=== PATIENT | female | born 1995 | race Caucasian/White ===

== ENCOUNTER 2018-07-27 19:40 | Inpatient (IN) ==
--- NOTE | 2018-07-27 20:38 | Emergency Department Note ---
Entered by Katelyn Veronica acting as a scribe for Stephen Gallagher DO History of Present Illness General Chief complaint: Mental Health Evaluation Stated complaint: depression,anxiety,suicide Source: patient and friends History of Present Illness Onset (ago): week(s) 1 Location: head (Suicidal ideation) Severity: similar to prior episodes Pain Consistency: + other (persistent) Maximum Pain Intensity: 7 Quality: + other (Suicidal ideation) Exacerbated By: + medication Associated symptoms: + other (Hallucinations, seizures) Treatments prior to arrival: other (Fenobarb, Vimpat) The patient is a 22 year old female who presents to the Emergency Room with complaints of persistent suicidal ideation starting 1 week ago. The patient reports that she came to the ED today due to her worsening suicidal ideation. She states that she was planning to jump in front of a moving vehicle. She adds that she does have access to knives and razors at home. The patients friend reports that the patient began to hallucinate 3 to 4 months ago and was verbally abusive because of the hallucinations. She explains that the patient is currently trying different medications to control her hallucinations and is currently taking Vimpat in addition to Fenobarb. The patients friend states that the patient has been having 2 to 3 seizures per day for the past month and that this is abnormal as her last seizure apart from the past month was in August. She adds that the patient was hospitalized due to her seizure in August. She reports that the patients last seizure was at [employer] and that she is epileptic. Home Medications Home Medications Medication Instructions Recorded Confirmed Type phenobarbital 64.8 mg PO BID 05/05/18 07/28/18 History cariprazine [Vraylar] 1.5 mg PO HS 07/28/18 07/28/18 History clindamycin HCl 300 mg PO Q8 07/28/18 07/28/18 History gabapentin 100 mg PO BID 07/28/18 07/28/18 History olanzapine 2.5 mg PO HS 07/28/18 07/28/18 History quetiapine 25 mg PO BID 07/28/18 07/28/18 History quetiapine 100 mg PO HS 07/28/18 07/28/18 History Allergies Allergy/AdvReac Type Severity Reaction Status Date / Time clonazepam Allergy Hallucinati Unverified 07/28/18 00:14 ng amitriptyline AdvReac Hives Unverified 07/28/18 00:14 carbamazepine [From Tegretol] AdvReac Hives Unverified 07/28/18 00:14 cephalexin [From Keflex] AdvReac Hives Unverified 07/28/18 00:14 clorazepate dipotassium AdvReac Hives Unverified 07/28/18 00:14 divalproex sodium AdvReac Hives Unverified 07/28/18 00:14 [From Depakote] lamotrigine [From Lamictal] AdvReac Hives Unverified 07/28/18 00:14 levetiracetam [From Keppra] AdvReac Hives Unverified 07/28/18 00:14 phenytoin [From Dilantin] AdvReac Hives Unverified 07/28/18 00:14 sertraline [From Zoloft] AdvReac Hives Unverified 07/28/18 00:14 topiramate [From Topamax] AdvReac Hives Unverified 07/28/18 00:14 trazodone AdvReac Hives Unverified 07/28/18 00:14 Past Med/Surg History Medical History Epilepsy Seizure disorder Lyme disease Family History Other No pertinent family history Social History Feels Safe at Home: Yes Smoking Status: Never smoker Preferred Language: Welsh Review of Systems See HPI for pertinent positives & negatives. and A total of 10 systems reviewed and were otherwise negative Physical Exam Vital Signs Vital Signs - 24 hr 07/27/18 19:44 07/27/18 21:42 07/27/18 23:26 Temperature 36.9 C Temperature Source Oral Sepsis Recent Fever Within 48 Hours No Sepsis Action Taken by Nursing No Action Required Pulse Rate 91 H Pulse Rate [Left Finger] 81 67 Pulse Rhythm [Left Finger] Regular Regular Pulse Strength [Left Finger] Normal Normal Respiratory Rate 18 16 16 Respiratory Effort / Characteristics Non-Labored Spontaneous Non-Labored Spontaneous Non-Labored Spontaneous Respiratory Depth Normal Normal Normal Respiratory Pattern Regular Regular Blood Pressure 141/93 H Blood Pressure [Right Arm] 111/69 111/73 Blood Pressure Mean 109 Blood Pressure Mean [Right Arm] 83 85 Blood Pressure Position [Right Arm] Sitting Sitting Pulse Oximetry 99 97 96 Oxygen Delivery Method Room Air Room Air Room Air GENERAL: Patient is awake alert in no acute distress patient is resting comfortably and showing no signs of anxiety EYES: The conjunctivae are clear. The pupils are round and reactive. EARS, NOSE, MOUTH AND THROAT: The nose is without any evidence of any deformity. Mucous membranes are moist tongue is midline NECK: The neck is nontender and supple. RESPIRATORY: Normal respiratory effort is noted there is no evidence of wheezing rhonchi or rales CARDIOVASCULAR: Regular rate and rhythm noted there no murmurs rubs or gallops normal S1 normal S2 GASTROINTESTINAL: The abdomen is soft. Bowel sounds are present in all quadrants. Abdomen is nontender MUSCULOSKELETAL/EXTREMITIES: There is no evidence of gross deformity full range of motion is noted in the hips and shoulders SKIN: There is no obvious evidence of any rash. There are no petechiae, pallor or cyanosis noted. NEUROLOGIC: Patient is awake alert and oriented x3 strength is symmetric patellar reflexes are 2+ bilaterally PSYCH: Patient is awake alert. Affect is flat. Patient is currently admitting to suicidal ideation with plan to step out in front of traffic to hurt herself. Course 2021: Past medical records reviewed. The patient was evaluated in room A6, and a complete history and physical examination were performed. 0001: I spoke with the psychiatric patient case manager at this time. 0027: I reevaluated the patient at this time. 0030: I reviewed the patient's case with Dr. Yuly Thorpe [facility] Emergency Physician. She will evaluate the patient for further management regarding her pending placement. Medical Decision Making Differential Diagnosis Differential includes toxic ingestions, self-mutilation, suicidal ideation, suicide attempt, depression. Medical Records Attestation: I reviewed the patient's medical records. Home Medications Current Medication List: was personally reviewed by me Laboratory Data Attestation: I reviewed the patient's lab results. Result diagrams: 07/27/18 20:59 07/27/18 20:59 Lab Results 07/27/18 07/27/18 07/27/18 Range/Units 20:00 20:00 20:50 WBC (4.8-10.8) K/uL RBC (4.2-5.4) M/uL Hgb (12.0-16.0) g/dL Hct (37-47) % MCV (80-100) fL MCH (25-34) pg MCHC (32-36) g/dL RDW Std Deviation (36.4-46.3) fL RDW Coeff of Alfie (11.5-14.5) % Plt Count (130-400) K/uL MPV (7.4-10.4) fL Immature Gran % (Auto) % Neut % (Auto) % Lymph % (Auto) % [place] % (Auto) % Eos % (Auto) % Baso % (Auto) % Immature Gran # (Auto) (0.00-0.02) K/uL Neut # (Auto) (1.4-6.5) K/uL Lymph # (Auto) (1.2-3.4) K/uL [place] # (Auto) (0.11-0.59) K/uL Eos # (Auto) (0-0.5) K/uL Baso # (Auto) (0-0.2) K/uL Sodium (136-145) mmol/L Potassium (3.5-5.1) mmol/L Chloride (98-107) mmol/L Carbon Dioxide (21-32) mmol/L Anion Gap (3-11) BUN (7-18) mg/dl Creatinine (0.6-1.2) mg/dl Est Cr Clr Drug Dosing ml/min Est GFR ( Amer) Est GFR (Non-Af Amer) BUN/Creatinine Ratio (10-20) Glucose (70-99) mg/dl Calcium (8.5-10.1) mg/dl Total Bilirubin (0.1-1) mg/dl AST (15-37) U/L ALT (12-78) U/L Alkaline Phosphatase (45-117) U/L Total Protein (6.4-8.2) gm/dl Albumin (3.4-5.0) gm/dl Globulin (2.5-4.0) gm/dl Albumin/Globulin Ratio (0.9-2) TSH (0.300-4.500) uIu/ml HCG, Qual Negative (Negative) Urine Color Yellow Urine Appearance Clear (Clear) Urine pH 6.0 (4.5-7.5) Ur Specific [place] 1.008 (1.000-1.030) Urine Protein Negative (Negative) Urine Glucose (UA) Negative (Negative) Urine Ketones Negative (Negative) Urine Blood Negative (Negative) Urine Nitrite Negative (Negative) Urine Bilirubin Negative (Negative) Urine Urobilinogen Negative (Negative) Ur Leukocyte Esterase Negative (Negative) Salicylates (2.8-20) mg/dl Urine Opiates Screen Neg (Neg) Ur Methadone, Qual Neg (Neg) Acetaminophen (10-30) ug/ml Urine Barbiturates Pos H (Neg) Ur Phencyclidine (PCP) Neg (Neg) U Amphetamin/Meth Scrn Neg (Neg) MDMA (Ecstasy) Screen Neg (Neg) Phenobarbital (15-40) mcg/mL U Benzodiazepines Scrn Neg (Neg) Ur Cocaine Metabolite Neg (Neg) U Marijuana (THC) Screen Neg (Neg) Ethyl Alcohol mg/dL (0-3) mg/dl 07/27/18 07/27/18 07/27/18 Range/Units 20:59 20:59 20:59 WBC 4.81 (4.8-10.8) K/uL RBC 4.51 (4.2-5.4) M/uL Hgb 12.7 (12.0-16.0) g/dL Hct 37.8 (37-47) % MCV 83.8 (80-100) fL MCH 28.2 (25-34) pg MCHC 33.6 (32-36) g/dL RDW Std Deviation 38.2 (36.4-46.3) fL RDW Coeff of Alfie 12.6 (11.5-14.5) % Plt Count 286 (130-400) K/uL MPV 9.2 (7.4-10.4) fL Immature Gran % (Auto) 0.2 % Neut % (Auto) 48.5 % Lymph % (Auto) 40.3 % [place] % (Auto) 9.4 % Eos % (Auto) 1.0 % Baso % (Auto) 0.6 % Immature Gran # (Auto) 0.01 (0.00-0.02) K/uL Neut # (Auto) 2.33 (1.4-6.5) K/uL Lymph # (Auto) 1.94 (1.2-3.4) K/uL [place] # (Auto) 0.45 (0.11-0.59) K/uL Eos # (Auto) 0.05 (0-0.5) K/uL Baso # (Auto) 0.03 (0-0.2) K/uL Sodium 136 (136-145) mmol/L Potassium 4.0 (3.5-5.1) mmol/L Chloride 104 (98-107) mmol/L Carbon Dioxide 26 (21-32) mmol/L Anion Gap 6.0 (3-11) BUN 12 (7-18) mg/dl Creatinine 0.86 (0.6-1.2) mg/dl Est Cr Clr Drug Dosing 78.7 ml/min Est GFR ( Amer) 112.7 Est GFR (Non-Af Amer) 97.3 BUN/Creatinine Ratio 14.3 (10-20) Glucose 94 (70-99) mg/dl Calcium 8.9 (8.5-10.1) mg/dl Total Bilirubin 0.1 (0.1-1) mg/dl AST 13 L (15-37) U/L ALT 23 (12-78) U/L Alkaline Phosphatase 73 (45-117) U/L Total Protein 8.3 H (6.4-8.2) gm/dl Albumin 4.3 (3.4-5.0) gm/dl Globulin 4.0 (2.5-4.0) gm/dl Albumin/Globulin Ratio 1.1 (0.9-2) TSH 3.310 (0.300-4.500) uIu/ml HCG, Qual (Negative) Urine Color Urine Appearance (Clear) Urine pH (4.5-7.5) Ur Specific [place] (1.000-1.030) Urine Protein (Negative) Urine Glucose (UA) (Negative) Urine Ketones (Negative) Urine Blood (Negative) Urine Nitrite (Negative) Urine Bilirubin (Negative) Urine Urobilinogen (Negative) Ur Leukocyte Esterase (Negative) Salicylates < 1.7 L (2.8-20) mg/dl Urine Opiates Screen (Neg) Ur Methadone, Qual (Neg) Acetaminophen < 2 L (10-30) ug/ml Urine Barbiturates (Neg) Ur Phencyclidine (PCP) (Neg) U Amphetamin/Meth Scrn (Neg) MDMA (Ecstasy) Screen (Neg) Phenobarbital 37.0 (15-40) mcg/mL U Benzodiazepines Scrn (Neg) Ur Cocaine Metabolite (Neg) U Marijuana (THC) Screen (Neg) Ethyl Alcohol mg/dL (0-3) mg/dl 07/27/18 Range/Units 20:59 WBC (4.8-10.8) K/uL RBC (4.2-5.4) M/uL Hgb (12.0-16.0) g/dL Hct (37-47) % MCV (80-100) fL MCH (25-34) pg MCHC (32-36) g/dL RDW Std Deviation (36.4-46.3) fL RDW Coeff of Alfie (11.5-14.5) % Plt Count (130-400) K/uL MPV (7.4-10.4) fL Immature Gran % (Auto) % Neut % (Auto) % Lymph % (Auto) % [place] % (Auto) % Eos % (Auto) % Baso % (Auto) % Immature Gran # (Auto) (0.00-0.02) K/uL Neut # (Auto) (1.4-6.5) K/uL Lymph # (Auto) (1.2-3.4) K/uL [place] # (Auto) (0.11-0.59) K/uL Eos # (Auto) (0-0.5) K/uL Baso # (Auto) (0-0.2) K/uL Sodium (136-145) mmol/L Potassium (3.5-5.1) mmol/L Chloride (98-107) mmol/L Carbon Dioxide (21-32) mmol/L Anion Gap (3-11) BUN (7-18) mg/dl Creatinine (0.6-1.2) mg/dl Est Cr Clr Drug Dosing ml/min Est GFR ( Amer) Est GFR (Non-Af Amer) BUN/Creatinine Ratio (10-20) Glucose (70-99) mg/dl Calcium (8.5-10.1) mg/dl Total Bilirubin (0.1-1) mg/dl AST (15-37) U/L ALT (12-78) U/L Alkaline Phosphatase (45-117) U/L Total Protein (6.4-8.2) gm/dl Albumin (3.4-5.0) gm/dl Globulin (2.5-4.0) gm/dl Albumin/Globulin Ratio (0.9-2) TSH (0.300-4.500) uIu/ml HCG, Qual (Negative) Urine Color Urine Appearance (Clear) Urine pH (4.5-7.5) Ur Specific [place] (1.000-1.030) Urine Protein (Negative) Urine Glucose (UA) (Negative) Urine Ketones (Negative) Urine Blood (Negative) Urine Nitrite (Negative) Urine Bilirubin (Negative) Urine Urobilinogen (Negative) Ur Leukocyte Esterase (Negative) Salicylates (2.8-20) mg/dl Urine Opiates Screen (Neg) Ur Methadone, Qual (Neg) Acetaminophen (10-30) ug/ml Urine Barbiturates (Neg) Ur Phencyclidine (PCP) (Neg) U Amphetamin/Meth Scrn (Neg) MDMA (Ecstasy) Screen (Neg) Phenobarbital (15-40) mcg/mL U Benzodiazepines Scrn (Neg) Ur Cocaine Metabolite (Neg) U Marijuana (THC) Screen (Neg) Ethyl Alcohol mg/dL < 3.0 (0-3) mg/dl Blood Pressure Blood Pressure Findings: Normal blood pressure Blood Pressure Disposition: did not require urgent referral MDM Narrative The patient is a 22-year-old female who presented to the emergency department for mental health evaluation. The patient has a history of mental health depression as well as some anxiety. She also has an underlying seizure disorder. The patient was medically cleared in the emergency department. The patient was evaluated by the mental health patient case manager. At this time further bed search is underway. Currently the patient is being evaluated by the delegate from [facility]. I do feel she would be a good candidate for inpatient treatment. The patient was able to take her evening medications. The patient was signed out to the nighttime physician. Please see her note for continuation of care and final disposition. Impression & Plan Suicidal ideation, Mood disorder, Seizure Discharge Plan Visit Data Chief Complaint: Mental Health Evaluation Stated Complaint: depression,anxiety,suicide ED Provider: Stephen Gallagher Discharge Problem: Suicidal ideation, Mood disorder, Seizure Patient Disposition: Still a Patient Forms Stand Alone Forms: My [facility] [employer] Prescriptions Prescriptions: No Action phenobarbital 32.4 mg tablet 64.8 mg PO BID RF: 0 quetiapine 25 mg tablet 25 mg PO BID RF: 0 quetiapine 100 mg tablet 100 mg PO HS RF: 0 gabapentin 100 mg capsule 100 mg PO BID RF: 0 clindamycin HCl 300 mg capsule 300 mg PO Q8 RF: 0 olanzapine 2.5 mg Tablet 2.5 mg PO HS RF: 0 cariprazine [Vraylar] 1.5 mg Capsule 1.5 mg PO HS RF: 0 Referrals Referrals: PCP,NO [Primary Care Provider] - The scribe's documentation has been prepared under my direction and personally reviewed by me in its entirety. I confirm that the note above accurately reflects all work, treatment, procedures, and medical decision making performed by me.
[2018-07-27 20:56] LABS: Appearance Urine Clear (Clear); Bilirubin Urine Negative (Negative); Color Urine Yellow; Glucose Urine UA Negative (Negative); Ketones Urine Negative (Negative); Leukocyte Esterase Urine Negative (Negative); Nitrite Urine Negative (Negative); Protein Urine Negative (Negative); Specific Gravity Urine 1.008 (1.000-1.030); Urobilinogen Urine Negative (Negative)
[2018-07-27 21:13] LABS: Basophils # (auto) 0.03 K/uL (0-0.2); Basophils % (auto) 0.6 %; Eosinophils # (auto) 0.05 K/uL (0-0.5); Hematocrit (blood only) 37.8 % (37-47); Hemoglobin 12.7 g/dL (12.0-16.0); Immature Granulocytes # (auto) 0.01 K/uL (0.00-0.02); Immature Granulocytes % (auto) 0.2 %; Lymphocytes # (auto) 1.94 K/uL (1.2-3.4); Lymphocytes % (auto) 40.3 %; Mean Corpuscular Hgb Conc 33.6 g/dL (32-36); Mean Corpuscular Volume 83.8 fL (80-100); Mean Platelet Volume 9.2 fL (7.4-10.4); Monocytes # (auto) 0.45 K/uL (0.11-0.59); Monocytes % (auto) 9.4 %; Neutrophils # (auto) 2.33 K/uL (1.4-6.5); Neutrophils % (auto) 48.5 %; Platelet Count 286 K/uL (130-400); RDW Coefficient of Variation 12.6 % (11.5-14.5); RDW Standard Deviation 38.2 fL (36.4-46.3); Red Blood Count 4.51 M/uL (4.2-5.4); White Blood Count 4.81 K/uL (4.8-10.8)
[2018-07-27 21:15] LABS: Amphetamines+Metham, Urine Neg (Neg); Barbiturates, Urine Pos (Neg); Benzodiazepine, Urine Neg (Neg); Cocaine, Urine Neg (Neg); MDMA (Ecstacy), Urine Neg (Neg); Methadone, Urine Neg (Neg); Opiate, Urine Neg (Neg); Phencyclidine, Urine Neg (Neg)
[2018-07-27 21:30] LABS: Albumin Level 4.3 gm/dl (3.4-5.0); BUN Creatinine Ratio 14.3 (10-20); Calcium 8.9 mg/dl (8.5-10.1); Creatinine Clr Calc Pharmacy 78.7 ml/min; Est GFR (African American) 112.7; Est GFR (Non-African American) 97.3
[2018-07-27 21:40] LABS: Albumin Globulin Ratio 1.1 (0.9-2); Bilirubin,Total 0.1 mg/dl (0.1-1); Total Protein 8.3 gm/dl (6.4-8.2)
[2018-07-27 21:41] LABS: Pregnancy Test, Serum Negative (Negative)
[2018-07-27 21:51] LABS: Acetaminophen < 2 ug/ml (10-30)
[2018-07-27 21:52] LABS: Salicylate < 1.7 mg/dl (2.8-20)
--- NOTE | 2018-07-28 01:03 | Emergency Department Note ---
ED Visit Note This case was signed out to me at change of shift awaiting bed placement. The patient has been accepted to [facility]. she will be transported up there shortly. .
[2018-07-28] MEDS ORDERED: BISMUTH SUBSALICYLATE PER ML OMNICELL CHARGE PO PRN (02:15)
[2018-07-28] MEDS ORDERED: MAGNESIUM HYDROXIDE SUSP 30 ML UDC PO PRN (02:15)
[2018-07-28] MEDS ORDERED: ACETAMINOPHEN 325 MG TAB PO PRN (02:15)
[2018-07-28] MEDS ORDERED: ALUMINUM/MAGNESIUM SUSP 30 ML UDC PO PRN (02:15)
[2018-07-28] MEDS ORDERED: SODIUM CHLORIDE 0.65% NA SOLN 45 ML (OCEAN) PRN (02:15)
[2018-07-28] MEDS ORDERED: CLINDAMYCIN HCL 150 MG CAP PO SCH (06:00)
[2018-07-28] MEDS: CLINDAMYCIN SCH ×3 (06:32→21:25)
[2018-07-28] MEDS ORDERED: PHENobarbital 32.4 MG TAB PO SCH (09:00)
[2018-07-28] MEDS: GABAPENTIN 100 MG CAP PO SCH ×2 (09:04→21:24)
[2018-07-28] MEDS: QUETIAPINE FUMARATE 25 MG TABLET PO SCH ×2 (09:05→13:39)
[2018-07-28] MEDS: PHENobarbital 32.4 MG TAB PO SCH ×2 (09:22→21:24)
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
[2018-07-28] MEDS: QUETIAPINE FUMARATE 200 MG TAB PO SCH (21:25)
[2018-07-28] MEDS ORDERED: OLANZAPINE 2.5 MG TAB PO SCH (22:00)
[2018-07-28] MEDS ORDERED: QUETIAPINE FUMARATE 200 MG TAB PO SCH (22:00)
[2018-07-28] MEDS ORDERED: VRAYLAR PO SCH (22:00)
[2018-07-29] MEDS: CLINDAMYCIN SCH ×3 (05:58→21:05)
[2018-07-29 07:23] LABS: Glucose Fasting 85 mg/dl (70-99)
[2018-07-29 07:30] LABS: Chol HDL Ratio 3; Cholesterol 231 mg/dl (0-200); HDL Cholesterol 82 mg/dl; LDL Cholesterol Calculated 138 mg/dl; Triglycerides 55 mg/dl (0-150); VLDL Cholesterol 11 mg/dl
[2018-07-29] MEDS: PHENobarbital 32.4 MG TAB PO SCH ×2 (09:03→21:04)
[2018-07-29] MEDS: GABAPENTIN 100 MG CAP PO SCH ×2 (09:03→21:04)
--- NOTE | 2018-07-29 09:12 | Psychiatric Progress Note ---
Date of Service July 29, 2018 Impression / Recommendations Impression Reports some mild improvement in mood, though admits she is a bit bored. Family meeting scheduled for this morning, will need to ensure knife collection is secured. Pt denies excessive grogginess this morning. Will continue quetiapine 200mg qHS for tonight, though dose adjustments may be necessary as she has not yet experienced any change in the presence of her auditory hallucinations. Pt remains at increased risk of harm to self as long as voices persist at current amplitude, need to ensure adequate aftercare and safety planning, as she is at high risk of suicide if discharged prematurely. (1) Suicidal ideation: 07/28 - admitted voluntarily to a locked behavioral health unit with every 15 minute suicide checks to ensure safety. - encourage participation in group and recreational programming - assist in development of healthy and effective coping strategies - schedule family meeting to involve outpatient supports in safety and discharge planning (2) Major depressive disorder, single episode, severe w psychotic behavior: 07/28 - Consolidate and increase quetiapine to 200mg qHS. Discontinue olanzapine and Vraylar - [facility] records from [facility] and [facility] hospitalizations - Gather collateral information from mother and friends to clarify recent medications trials and response 07/29 - Continue quetiapine 200mg qHS, may require further titration - Reviewed fasting labs, glucose, triglycerides, HDL and LDL WNL; total cholesterol elevated at 231 - pt reports history of elevated cholesterol with previous labwork, ideally would be included in records from other hospitalizations to determine if there is a significant difference. - Attempt to gather more complete history from family meeting today, requests have been made for records but likely won't acquire until after the weekend. (3) Seizure disorder: 07/28 - Continue current medication regimen: phenobarbital 64.8mg BID - Continue seizure and fall precautions - Pt history briefly shared with on-call provider for neurology, no indication for formal consult at this time 07/29 - Will require ongoing follow-up with outpatient neurologist to address change in seizures - No indication for neurology consult as of today's visit - Would recommend considering head imaging to determine if other cause for auditory hallucinations, suggest completing as an outpatient (4) Lyme disease: 07/29 - Would recommend considering head imaging to determine if other cause for auditory hallucinations, suggest completing as an outpatient Inventory Assets Strengths: willingness for treatment, support of mother and friends Needs: effective medication regimen, development of healthy coping strategies Risk Factors Assessment Male: No : Yes Do You Have Access To A Gun?: No Health Problems: Yes Mental Health Diagnoses: Yes Substance Use Disorders: No Previous Attempt: No Family History of Suicide: Yes Previous Psychiatric Hospitalization: Yes Hopelessness: No Smoker: No Protective Factors Assessment Confucianism Beliefs: Yes : No Responsible for Young Children: No Employed: No (disabled) Stable Relationships: No Supportive Family: Yes Interval History Identifying Information ROYA HDEZ is a 22-year-old F who currently lives in [place], [place] with her mother, has a history of Lyme disease, prolonged QTc, Grand Mal seizures, insomnia, P.O.T.S, psychosis NOS, and MTHFR DNA mutation . Pt was admitted on 07/28/18 01:09 on a 201 voluntary commitment for worsening depression and SI stemming from auditory and visual hallucinations occurring for the past 3-4 months. Information is gathered from the patient and is considered to be reliable, but somewhat limited. Chief Complaint "Yeah, a little bit bored last night". Review of Systems Notes Constitutional: reports mild fatigue Cardiovascular: denied Respiratory: denied Gastrointestinal: denied Neurological: denied Psychiatric: denies symptoms other than stated above Total of at least 10 systems reviewed, pertinent positives as above and in HPI. Sleep Information Total Hours of Sleep: 8.25 Sleep Comments: awakened for 0600 med and vital sign check-sitting B/P low and pt. felt some dizziness. stated this does happen to her with positional changes. she was encouraged to use her bedside tap cardona for staff assist if needed or to alert us to her feeling dizzy. she was still quite tired. Meal Information Percent Meal Consumed - Breakfast: 75 Percent Meal Consumed - Lunch: 50 Percent Meal Consumed - Dinner: 100 Subjective Subjective Patient was seen & assessed and interval progress reviewed with Nursing. Staff report the patient has been adjusting well to the unit. No reported seizures since admission. Pt to have meeting this morning with her mother, sister, and by phone, a friend. [place] of patient's knife collection, which will need to be addressed. Pt was seen today prior to this meeting to assess progress since admission. Pt states she has been doing well, admitting she is a bit bored. We reviewed medication changes made as well as her fasting lab results. She does admit that her daytime doses of quetiapine after resulted in cloudiness and sedation, and is hopeful the medication changes will address this. Pt denies any side effects or morning grogginess. Denies any significant change in the presence of the voices today. Pt denies and needs or concerns today. Physical Exam Psychiatric Orientation: alert, oriented x 3 and cooperative (and pleasant) Apperance: appropriately dressed and appropriately groomed; + did not appear stated age (younger than stated age) Eye Contact: good eye contact Motor Behavior: steady gait and station and no abnormal motor movements Speech: normal rate/rhythm/volume of speech Affect: + blunted affect (does not appear overtly depressed) Mood: no depressed mood ("just bored, curious to hear what my outpatient provider says tomorrow.") and no anxious mood Thought Process: goal directed thought process and clear/coherent thought process Thought Content: reality based without delusions Suicidal Thoughts: denies suicidal thoughts Homicidal Thoughts: denies homicidal thoughts Hallucinations: + auditory hallucinations and + visual hallucinations Cognition: attention grossly intact and language grossly intact; + recent memory not intact and + remote memory not intact Estimated Intelligence: consistent with education level Insight: + fair insight Judgement: + fair judgement Vital Signs (Past 24 Hours) Last Vital Signs Temp 36.5 C 07/29/18 06:23 Pulse 89 07/29/18 06:23 Resp 16 07/29/18 06:23 BP 101/64 07/29/18 06:23 Pulse Ox 100 07/28/18 02:34 Results & Data Laboratory Results Laboratory Results - last 24 hr 07/29/18 06:50 Fasting Glucose 85 Triglycerides 55 Cholesterol 231 H LDL Cholesterol, Calc 138 VLDL Cholesterol, Calc 11 HDL Cholesterol 82 Cholesterol/HDL Ratio 3 Current Inpatient Medications Current Inpatient Medications: Current Inpatient Medications Acetaminophen (Tylenol) 650 mg PO Q4H PRN PRN Reason: Headache or Minor Fever Stop: 08/27/18 02:14 Al Hydrox/Mg Hydrox/Simethicone (Maalox) 30 ml PO Q4H PRN PRN Reason: GI Upset Stop: 08/27/18 02:14 Bismuth Subsalicylate (Kaopectate) 15 ml PO PRN PRN PRN Reason: Loose Stool Stop: 08/27/18 02:14 Gabapentin (Neurontin) 100 mg PO BID YASMANI Stop: 08/27/18 08:59 Last Admin: 07/29/18 09:03 Dose: 100 mg Hydroxyzine HCl (Vistaril) 50 mg PO HSZ PRN PRN Reason: Insomnia Stop: 08/27/18 02:14 Hydroxyzine HCl (Vistaril) 25 mg PO Q4H PRN PRN Reason: Anxiety Stop: 08/27/18 02:14 Magnesium Hydroxide (Milk Of Magnesia) 30 ml PO DAILY PRN PRN Reason: Heartburn Stop: 08/27/18 02:14 Clindamycin~!Non- Formulary Patient's Own Med 1 ea N/A Q8 YASMANI Stop: 07/30/18 14:01 Last Admin: 07/29/18 05:58 Dose: 300 mg Phenobarbital (Phenobarbital) 64.8 mg PO BID YASMANI Stop: 08/27/18 08:59 Last Admin: 07/29/18 09:03 Dose: 64.8 mg Quetiapine Fumarate (Seroquel) 200 mg PO HS YASMANI Stop: 08/27/18 21:59 Last Admin: 07/28/18 21:25 Dose: 200 mg Sodium Chloride ([place] Nasal) 1 - 2 sprays NA PRN PRN PRN Reason: Nasal Dryness/Congestion Stop: 08/27/18 02:14 Post Discharge Appointments Primary Care Physician Name Of Family Doctor: Dr Ephraim Maravilla - [address] Primary Care Provider Appointment Comment: [id number] [facility] [address], [place] [address] Psychiatrist Name of Psychiatrist: Marleny Boyer PA-C Psychiatrist's Psychiatric Appointment Comment: [address], [place] [address] Therapist Name of Therapist: Marleny Allen Therapist's Therapy Appointment Comment: [address], [place] [address] Nanoscience Technician Name of Nanoscience Technician: Marleny Morgan Phone Number for Nanoscience Technician: Case Management Appointment Comment: [address], [place] [address] Contact Information Discharge Discharge Address: [address] [place] [address], [place] [address] CPT Code CPT Code 58357
[2018-07-29] MEDS: QUETIAPINE FUMARATE 200 MG TAB PO SCH (21:04)
[2018-07-30] MEDS: CLINDAMYCIN SCH ×2 (06:28→14:35)
[2018-07-30] MEDS: PHENobarbital 32.4 MG TAB PO SCH ×2 (08:44→21:18)
[2018-07-30] MEDS: GABAPENTIN 100 MG CAP PO SCH ×2 (08:44→21:18)
--- NOTE | 2018-07-30 08:50 | Psychiatric Progress Note ---
Date of Service July 30, 2018 Impression / Recommendations Impression Overall mood remains neutral; however, there has been no significant change to the presence of her hallucinations. Will increase quetiapine to 300mg qHS, risks and benefits explained and patient is agreeable. Family session held with mother and close friend, confirmed that collection of weapons is secured. Neurology consult requested as patient has demonstrated suspected seizure activity, has been experiencing increased episodes for the past 3-4 months, previously well-controlled. Pt remains at increased risk of harm to self as long as voices persist at current amplitude, need to ensure adequate aftercare and safety planning, as she is at high risk of suicide if discharged prematurely. (1) Suicidal ideation: 07/28 - admitted voluntarily to a locked behavioral health unit with every 15 minute suicide checks to ensure safety. - encourage participation in group and recreational programming - assist in development of healthy and effective coping strategies - schedule family meeting to involve outpatient supports in safety and discharge planning 07/30 - Denies SI at this time, but recognizes limited opportunities while on the unit, which triggers fewer thoughts. She is unable to guarantee her safety should she be discharged and come across these triggers. This is especially concerning as the voices which "egg me on when I have those thoughts" remain unimproved. (2) Major depressive disorder, single episode, severe w psychotic behavior: 07/28 - Consolidate and increase quetiapine to 200mg qHS. Discontinue olanzapine and Vraylar - Request records from [facility] and [facility] hospitalizations - Gather collateral information from mother and friends to clarify recent medications trials and response 07/29 - Continue quetiapine 200mg qHS, may require further titration - Reviewed fasting labs, glucose, triglycerides, HDL and LDL WNL; total cholesterol elevated at 231 - pt reports history of elevated cholesterol with previous labwork, ideally would be included in records from other hospitalizations to determine if there is a significant difference. - Attempt to gather more complete history from family meeting today, requests have been made for records but likely won't acquire until after the weekend. 07/30 - Increase quetiapine to 300mg qHS - Continue to encourage group participation - Records from outpatient providers requested upon admission, will follow-up today following the weekend, in hopes to gather collateral information (3) Seizure disorder: 07/28 - Continue current medication regimen: phenobarbital 64.8mg BID - Continue seizure and fall precautions - Pt history briefly shared with on-call provider for neurology, no indication for formal consult at this time 07/29 - Will require ongoing follow-up with outpatient neurologist to address change in seizures - No indication for neurology consult as of today's visit - Would recommend considering head imaging to determine if other cause for auditory hallucinations, suggest completing as an outpatient 07/30 - First episodes of seizure activity on the unit occurring around shift change yesterday afternoon (1400 - described to be grand mal in character) and early this morning (0300 - described to be petite mal in character). Neurology briefly informed of patient's status on our unit at time of admission, will now request formal neurology consultation to address increased seizure episodes following outpatient medication changes. - Records had been requested from outpatient neurology, will follow up today to see if the office is open and additional information can be sent for neurology review. (4) Lyme disease: 07/29 - Would recommend considering head imaging to determine if other cause for auditory hallucinations, suggest completing as an outpatient Inventory Assets Strengths: willingness for treatment, support of mother and friends Needs: effective medication regimen, development of healthy coping strategies Risk Factors Assessment Male: No : Yes Do You Have Access To A Gun?: No Health Problems: Yes Mental Health Diagnoses: Yes Substance Use Disorders: No Previous Attempt: No Family History of Suicide: Yes Previous Psychiatric Hospitalization: Yes Hopelessness: No Smoker: No Protective Factors Assessment Holiness Beliefs: Yes : No Responsible for Young Children: No Employed: No (disabled) Stable Relationships: No Supportive Family: Yes Interval History Identifying Information ROYA HDEZ is a 22-year-old F who currently lives in [place], [place] with her mother, has a history of Lyme disease, prolonged QTc, Grand Mal seizures, insomnia, P.O.T.S, psychosis NOS, and MTHFR DNA mutation . Pt was admitted on 07/28/18 01:09 on a 201 voluntary commitment for worsening depression and SI stemming from auditory and visual hallucinations occurring for the past 3-4 months. Information is gathered from the patient and is considered to be reliable, but somewhat limited. Chief Complaint "I'm ok. I had some seizures last night". Review of Systems Notes Constitutional: reports fatigue Cardiovascular: denied Respiratory: denied Gastrointestinal: denied Neurological: two suspected seizures since last assessment Psychiatric: denies symptoms other than stated above Musculoskeletal: reports muscle soreness following her seizure episodes Total of at least 10 systems reviewed, pertinent positives as above and in HPI. Sleep Information Total Hours of Sleep: 7.75 Sleep Comments: seizure activity around 0300-see NN Meal Information Percent Meal Consumed - Breakfast: 75 Percent Meal Consumed - Lunch: 100 Percent Meal Consumed - Dinner: 40 Subjective Subjective Patient was seen & assessed and interval progress reviewed with Treatment Team. Staff reports the patient the patient had suspected seizure activity yesterday afternoon and early this morning - the first occurrence of seizure activity since her admission. Pt was seen today to assess progress since admission. Pt states she is doing well, "just sore." She states there has been no change in the presence of her hallucinations since admission. Suicidal thoughts have not been present since admission, however patient had described them as "only when the opportunity to hurt myself was there", and clearly those opportunities are eliminated while on the unit. Pt admits her hallucinations are primarily auditory and visual in nature, but she admits to occasional tactile hallucinations when she visualizes the bugs crawling on her. Pt denies other needs or concerns today. Pt states she had a good meeting with her mother and good friend. She states she was encouraged during the meeting to share her thoughts and feelings more frequently, and feels with practice she will be able to do this. She is interested in knowing the expected length of stay, but is aware that she may be here for several more days, as there has been no significant change to her symptoms since admission. Physical Exam Psychiatric Orientation: alert, oriented x 3 and cooperative (and timid) Apperance: appropriately dressed and appropriately groomed Eye Contact: good eye contact Motor Behavior: steady gait and station and no abnormal motor movements Speech: normal rate/rhythm/volume of speech Affect: + depressed affect Mood: + depressed mood ("better, but still having the hallucinations") Thought Process: goal directed thought process, linear/logical thought process and clear/coherent thought process Thought Content: reality based without delusions Suicidal Thoughts: denies suicidal thoughts (since there is no opportunity for potential action on the unit) Homicidal Thoughts: denies homicidal thoughts Hallucinations: + auditory hallucinations (~5 male voices, still present), + visual hallucinations (shadow people, bugs crawling) and + tactile hallucinations (only present with occasional episodes of visual hallucinations of bugs) Cognition: recent memory grossly intact, remote memory grossly intact, attention grossly intact and language grossly intact Estimated Intelligence: consistent with education level Insight: + fair insight Judgement: + fair judgement Vital Signs (Past 24 Hours) Last Vital Signs Temp 36.5 C 07/30/18 06:36 Pulse 91 H 07/30/18 06:36 Resp 16 07/30/18 06:36 BP 105/67 07/30/18 06:36 Pulse Ox 98 07/29/18 14:53 Results & Data Current Inpatient Medications Current Inpatient Medications: Current Inpatient Medications Acetaminophen (Tylenol) 650 mg PO Q4H PRN PRN Reason: Headache or Minor Fever Stop: 08/27/18 02:14 Al Hydrox/Mg Hydrox/Simethicone (Maalox) 30 ml PO Q4H PRN PRN Reason: GI Upset Stop: 08/27/18 02:14 Bismuth Subsalicylate (Kaopectate) 15 ml PO PRN PRN PRN Reason: Loose Stool Stop: 08/27/18 02:14 Gabapentin (Neurontin) 100 mg PO BID [facility] Stop: 08/27/18 08:59 Last Admin: 07/30/18 08:44 Dose: 100 mg Hydroxyzine HCl (Vistaril) 50 mg PO HSZ PRN PRN Reason: Insomnia Stop: 08/27/18 02:14 Hydroxyzine HCl (Vistaril) 25 mg PO Q4H PRN PRN Reason: Anxiety Stop: 08/27/18 02:14 Magnesium Hydroxide (Milk Of Magnesia) 30 ml PO DAILY PRN PRN Reason: Heartburn Stop: 08/27/18 02:14 Clindamycin~!Non- Formulary Patient's Own Med 1 ea N/A Q8 YASMANI Stop: 07/30/18 14:01 Last Admin: 07/30/18 06:28 Dose: 300 mg Phenobarbital (Phenobarbital) 64.8 mg PO BID YASMANI Stop: 08/27/18 08:59 Last Admin: 07/30/18 08:44 Dose: 64.8 mg Quetiapine Fumarate (Seroquel) 200 mg PO HS YASMANI Stop: 08/27/18 21:59 Last Admin: 07/29/18 21:04 Dose: 200 mg Sodium Chloride ([place] Nasal) 1 - 2 sprays NA PRN PRN PRN Reason: Nasal Dryness/Congestion Stop: 08/27/18 02:14 Post Discharge Appointments Primary Care Physician Name Of Family Doctor: Dr Ehpraim Maravilla - [address] Primary Care Provider Appointment Comment: [address], [place] [address] Psychiatrist Name of Psychiatrist: Marleny Boyer PA-C Psychiatrist's Psychiatric Appointment Comment: [address], [place] [address] Therapist Name of Therapist: Marleny Allen Therapist's Therapy Appointment Comment: [address], [place] [address] Group Director Name of Group Director: Marleny Morgan Phone Number for Group Director: Case Management Appointment Comment: [address], [place] [address] Contact Information Discharge Discharge Address: [address] [place] [address], [address], [place] [address] CPT Code CPT Code 79883
--- NOTE | 2018-07-30 10:28 | Neurology Consultation ---
Date of Consultation July 30, 2018 Assessment & Plan (1) Seizure disorder: This is a 22-year-old female who reports a history of seizure disorder that was diagnosed at age 10 and describes extensive unremarkable evaluations as a child and in adulthood. Her history is also notable for reported intolerances to multiple anticonvulsants. Records pertaining to her previous neurological assessments are not available but it sounds like she does not have an electrically diagnosed epilepsy syndrome. She has had 2 recent episodes while admitted to the behavioral health unit for treatment of depression with psychosis. Although these episodes seem consistent with nonepileptic seizures, I am unable to exclude breakthrough seizures of electrical or organic origin in this individual. In light of her multiple medication intolerances I would recommend increasing her dosage of gabapentin to 200 mg twice daily. She may continue with phenobarbital at the current dosage as her serum level is appropriate and on the high end of the normal range. Her gabapentin dosage could be increased further if necessary, depending on tolerability. However, if this patient were to continue to exhibit additional seizures or seizure-like episodes but with associated protracted alteration in mental status or other neurologic impairments I would recommend transfer to a tertiary center for inpatient EEG monitoring. Otherwise, if her spells are brief and are without associated neurologic deficits then it would probably be safe to continue to monitor her on the behavioral health unit. I will request an EEG. Going forward, this patient should follow up with Dr. Moreno, her neurologist in [place], for ongoing management decisions and to follow-up with the results of her recent ambulatory EEG monitoring. History of Present Illness Reason for Consultation: Seizure disorder, assistance with management Requesting Physician: Pearl Bird PA-C Attending Physician: Lennie Marie MD History of Present Illness The patient is a 22-year old female who was admitted to the behavioral health unit for treatment of persistent visual and auditory hallucinations in the context of depression with suicidal ideation. She has a past medical history of seizure disorder that she reports was diagnosed at age 10. She has previously followed with specialists at [facility] and most recently with Dr. Moreno at [facility] for her seizures. Records pertaining to her previous neurological assessments are not available although she continues to actively follow with Dr. Moreno and reports that she had an ambulatory EEG completed recently although has not been contacted yet regarding the results. She is currently prescribed phenobarbital and gabapentin for her seizures and indicates that gabapentin was the most recent addition. She reports a history of intolerance or allergic reactions to multiple anticonvulsant trials over her lifetime, notably Depakote, Dilantin, Topamax, Keppra, Lamictal, and Tegretol. She believes there have been other medication trials as well but cannot remember specific medications. She recalls having extended inpatient EEG completed in the past but does not believe any significant abnormalities were identified. She recalls having a brain MRI completed previously as well and being told that she may have "scarring on her brain" as a result of Lyme disease. The patient reports that she began having seizures at age 9 and indicates that these spells were primarily brief lapses in awareness. These episodes would occur intermittently and without any provoking factors. She does not recall having seizures provoked by flashing lights or other external stimuli. She does not believe her seizures responded to any particular anticonvulsant and reports that her management was complicated by multiple medication intolerances. She does admit that she has gone several years without any seizures and without taking any seizure medication. However, her seizures began to occur more frequently over the past year and she began following with Dr. Moreno. The patient reports that prior to seizure onset she will experience a feeling of generalized shakiness. She reports that she has been experiencing 1 or 2 seizures per day for the past few months. However, she may go a few days without any episodes. She had two observed episodes during her current admission to the behavioral health unit. The first of these episodes occurred yesterday at around 2:15 in the afternoon. Nursing records indicate that she had walked to the nurses station indicating that she felt as if she was going to have a seizure. She was subsequently told to sit on the floor during which time she was observed to have a brief seizure episode. Semiology was not described, however. The second episode occurred early this morning, at around 2:50 AM. As before, the patient walked to the nurses station indicating that she felt as if she was going to have a seizure. She felt shaky. She was instructed to sit on the floor during which time the patient was observed to have "curling of the hands and feet, and gentle closure of her eyelids." The episode reportedly persisted for about 2 minutes and was not associated with incontinence or tongue bite. She was reportedly slow to respond for the following 5 minutes and then returned to her baseline. Currently, the patient is without specific neurological complaint. She denies headache, vision change, vertigo, dizziness, change in speech, poor concentration, weakness, sensory loss, or problems with balance or coordination. Allergies Allergy/AdvReac Type Severity Reaction Status Date / Time clonazepam Allergy Hallucinati Unverified 07/28/18 00:14 ng amitriptyline AdvReac Hives Unverified 07/28/18 00:14 carbamazepine [From Tegretol] AdvReac Hives Unverified 07/28/18 00:14 cephalexin [From Keflex] AdvReac Hives Unverified 07/28/18 00:14 clorazepate dipotassium AdvReac Hives Unverified 07/28/18 00:14 divalproex sodium AdvReac Hives Unverified 07/28/18 00:14 [From Depakote] lamotrigine [From Lamictal] AdvReac Hives Unverified 07/28/18 00:14 levetiracetam [From Keppra] AdvReac Hives Unverified 07/28/18 00:14 phenytoin [From Dilantin] AdvReac Hives Unverified 07/28/18 00:14 sertraline [From Zoloft] AdvReac Hives Unverified 07/28/18 00:14 topiramate [From Topamax] AdvReac Hives Unverified 07/28/18 00:14 trazodone AdvReac Hives Unverified 07/28/18 00:14 Home Medications Home Medications Medication Instructions Recorded Confirmed Type phenobarbital 64.8 mg PO BID 05/05/18 07/28/18 History cariprazine [Vraylar] 1.5 mg PO HS 07/28/18 07/28/18 History clindamycin HCl 300 mg PO Q8 07/28/18 07/28/18 History gabapentin 100 mg PO BID 07/28/18 07/28/18 History olanzapine 2.5 mg PO HS 07/28/18 07/28/18 History quetiapine 25 mg PO BID 07/28/18 07/28/18 History quetiapine 100 mg PO HS 07/28/18 07/28/18 History Patient History Medical History Epilepsy Seizure disorder Lyme disease Family History Other No pertinent family history Social History Feels Safe at Home: Yes Smoking Status: Never smoker Beliefs That Will Affect Care: Moravian (Quaker) Preferred Language: Greek Communication Ability: Effective Basting Marker Required: No Review of Systems Constitutional: no fever, no chills, no sweats and no body aches Eyes: no blind spots and no diplopia Ear, Nose, Mouth, Throat: no tinnitus and no hearing loss Respiratory: no cough and no dyspnea Cardiovascular: no chest pain and no palpitations Gastrointestinal: no abdominal pain, no nausea and no vomiting Genitourinary (Female): no dysuria Musculoskeletal: no back pain, no joint pain and no myalgia Integumentary: no rash and no lesions Neurologic: as per Subjective / HPI and + seizure-like activity; no gait abnormality, no localized weakness and no loss of sensation Psychiatric: as per Subjective / HPI, + depression, + suicidal ideation, + auditory hallucinations and + visual hallucinations Hematologic / Lymphatic: no easy bleeding and no easy bruising Physical Exam 2 Vital Signs (Past 24 Hours): Last Vital Signs Temp 36.5 C 07/30/18 06:36 Pulse 91 H 07/30/18 06:36 Resp 16 07/30/18 06:36 BP 105/67 07/30/18 06:36 Pulse Ox 98 07/29/18 14:53 Physical Exam: The patient is a well-developed, well-nourished adult female. She is pleasant and cooperative and in no acute distress. She is alert and fully oriented. Recent and remote memory intact. Attention and concentration normal. Patient exhibits a normal spontaneous speech pattern as well as an age- appropriate fund of knowledge and normal vocabulary. Visual edgar full to confrontation. Visual acuity normal. Pupils equal round reactive to light and accommodation. Eye movements normal. There is no nystagmus. Facial sensation and expression are intact. No facial droop. Hearing intact bilaterally. Palate elevates to midline. Shoulder shrug intact. Tongue protrudes to midline. Sensation intact to all modalities in all 4 limbs. Deep tendon reflexes are intact and symmetrical for the arms and legs bilaterally. Plantar responses downgoing bilaterally. There is no dysdiadochokinesia or dysmetria finger to nose or heel to cross bilaterally. Ophthalmoscopic examination reveals normal-appearing optic disks and posterior segments. No papilledema or hemorrhages. Carotid pulses normal bilaterally, no bruits to auscultation. Gait and station normal. Patient exhibits normal muscle strength and tone for all 4 limbs. No atrophy. No abnormal movements observed. Results & Data Laboratory Results A recent phenobarbital level was 37.0. Diagnostic Findings A recent electrocardiogram reveals a normal sinus rhythm, 82 bpm.
[2018-07-30 16:00] LABS: Amobarbital, Urine Conf NEGATIVE NG/ML (CUTOFF=100); Phenobarbital, Urine >8000 NG/ML (CUTOFF=100); Secobarbital, Urine Conf NEGATIVE NG/ML (CUTOFF=100)
[2018-07-30] MEDS: QUETIAPINE FUMARATE 300 MG TABLET PO SCH (21:18)
--- NOTE | 2018-07-31 07:23 | Psychiatric Progress Note ---
Date of Service July 31, 2018 Impression / Recommendations Impression Mood has improved and feels safe here, but continues to have hallucinations and seizure activity daily. Quetiapine has been increased to 300mg qHS, and gabapentin increased to target seizures. Family session held with mother and close friend, confirmed that collection of weapons is secured. Neurology consult obtained for ongoing seizure activity, and had an EEG today. Inpatient treatment is medically necessary due to the risk of suicide if discharged prematurely. (1) Suicidal ideation: 07/28 - admitted voluntarily to a locked behavioral health unit with every 15 minute suicide checks to ensure safety. - encourage participation in group and recreational programming - assist in development of healthy and effective coping strategies - family meeting held with mother, sister, and friend -they agreed to secure the patient's weapon collection. 07/30 - Denies SI at this time, but recognizes limited opportunities while on the unit, which triggers fewer thoughts. She is unable to guarantee her safety should she be discharged and come across these triggers. This is especially concerning as the voices which "egg me on when I have those thoughts" remain unimproved. (2) Major depressive disorder, single episode, severe w psychotic behavior: 07/28 - Consolidate and increase quetiapine to 200mg qHS. Discontinue olanzapine and Vraylar - Request records from [facility] and [facility] hospitalizations - Gather collateral information from mother and friends to clarify recent medications trials and response 07/29 - Continue quetiapine 200mg qHS, may require further titration - Reviewed fasting labs, glucose, triglycerides, HDL and LDL WNL; total cholesterol elevated at 231 - pt reports history of elevated cholesterol with previous labwork, ideally would be included in records from other hospitalizations to determine if there is a significant difference. - Attempt to gather more complete history from family meeting today, requests have been made for records but likely won't acquire until after the weekend. 07/30 - Increase quetiapine to 300mg qHS - Continue to encourage group participation - Records from outpatient providers requested upon admission, will follow-up today following the weekend, in hopes to gather collateral information 07/31 - Symptoms improving, but mood still low and does not feel safe outside of the hospital. -Continue current medications, participation in groups and therapy, and working on healthy coping skills and discharge safety plan. (3) Seizure disorder: 07/28 - Continue current medication regimen: phenobarbital 64.8mg BID - Continue seizure and fall precautions - Pt history briefly shared with on-call provider for neurology, no indication for formal consult at this time 07/29 - Will require ongoing follow-up with outpatient neurologist to address change in seizures - No indication for neurology consult as of today's visit - Would recommend considering head imaging to determine if other cause for auditory hallucinations, suggest completing as an outpatient 07/30 - First episodes of seizure activity on the unit occurring around shift change yesterday afternoon (1400 - described to be grand mal in character) and early this morning (0300 - described to be petite mal in character). Neurology briefly informed of patient's status on our unit at time of admission, will now request formal neurology consultation to address increased seizure episodes following outpatient medication changes. - Records had been requested from outpatient neurology, will follow up today to see if the office is open and additional information can be sent for neurology review. 07/31 - Appreciate Dr. Falcon's recommendations. Patient continues to have episodes of seizure like activity, will await EEG reading, and consider transfer to inpatient neuro unit if she has prolonged changes in mental status or neurological deficits. -Continue current seizure medications, and schedule follow-up with outpatient neurologist, Dr. Moreno. (4) Lyme disease: 07/29 - Would recommend considering head imaging to determine if other cause for auditory hallucinations, suggest completing as an outpatient 07/31 -patient reports she had recent head imaging and her outpatient neurologist has the results. As above, scheduled follow-up with outpatient neurology. Inventory Assets Strengths: willingness for treatment, support of mother and friends Needs: effective medication regimen, development of healthy coping strategies Risk Factors Assessment Male: No : Yes Do You Have Access To A Gun?: No Health Problems: Yes Mental Health Diagnoses: Yes Substance Use Disorders: No Previous Attempt: No Family History of Suicide: Yes Previous Psychiatric Hospitalization: Yes Hopelessness: No Smoker: No Protective Factors Assessment Alevism Beliefs: Yes : No Responsible for Young Children: No Employed: No (disabled) Stable Relationships: No Supportive Family: Yes Interval History Identifying Information ROYA HDEZ is a 22-year-old F who currently lives in [place], [place] with her mother, has a history of Lyme disease, prolonged QTc, Grand Mal seizures, insomnia, P.O.T.S, psychosis NOS, and MTHFR DNA mutation . Pt was admitted on 07/28/18 01:09 on a 201 voluntary commitment for worsening depression and SI stemming from auditory and visual hallucinations occurring for the past 3-4 months. Information is gathered from the patient and is considered to be reliable, but somewhat limited. Chief Complaint "One of the main reasons I'm here is I've been having these seizures...". Review of Systems Sleep Information Total Hours of Sleep: 5.75 Sleep Comments: seizure activity at 0520 lasting 3.10 min. Meal Information Percent Meal Consumed - Breakfast: 75 Percent Meal Consumed - Lunch: 10 Percent Meal Consumed - Dinner: 50 Subjective Subjective Patient was seen & assessed and interval progress reviewed with Nursing. Staff report she has had multiple episodes of seizure activity since admission (3 yesterday), where she is unresponsive and demonstrates tonic clonic movements. She was seen by neurology yesterday and they increased her gabapentin to 200 mg twice daily and continued phenobarbital at the current dose. Transfer to an inpatient tertiary care center with inpatient EEG monitoring is recommended if she continued to have seizures or seizure-like episodes with associated protracted alteration in mental status or other neurologic impairments. She has an EEG scheduled for today. On my assessment, she reports mood is still low but she feels safe here and denies SI, but says "it's probably because I don't have access to anything here. " She is distraught by her continued seizure activity, noting she has been working with her neurologist in [place] to try to find something that works, as many medications have been ineffective. She says he was waiting for an EEG she had done last week for further recommendations, and that they told her she had "scaring on my brain" after imaging (unknown if it was MRI or CAT scan). She reports seizures 1-3 times daily for the past month or so, although has had seizures since age 10 or earlier. She reports mood worsened after seizures increased, as they prevented her from engaging in activities she enjoyed, like spending time with friends or going to moravian. She talks about her SI, stating it is often triggered by seeing things she could use to hurt herself, like razors while shaving. She does think mood has improved since admission. She continues to have auditory and visual hallucinations daily, usually in the PM - sees shadow people and hears angry voices yelling at her. She has good insight that they are hallucinations, so is usually able to reassure herself/distract. She admits to isolating at times, but has been trying to push herself to interact more with others. Physical Exam Psychiatric Orientation: alert, oriented x 3 and cooperative Apperance: appropriately dressed, appropriately groomed and appeared stated age Eye Contact: good eye contact Motor Behavior: steady gait and station and no abnormal motor movements Speech: normal rate/rhythm/volume of speech Affect: euthymic affect "better" Thought Process: goal directed thought process Thought Content: reality based without delusions Suicidal Thoughts: denies suicidal thoughts Homicidal Thoughts: denies homicidal thoughts Hallucinations: + auditory hallucinations and + visual hallucinations Cognition: recent memory grossly intact, attention grossly intact and language grossly intact Estimated Intelligence: average estimated intelligence Insight: + fair insight Judgement: + fair judgement Vital Signs (Past 24 Hours) Last Vital Signs Temp 36.5 C 07/31/18 06:45 Pulse 66 07/31/18 06:45 Resp 16 07/31/18 06:45 BP 104/67 07/31/18 06:45 Pulse Ox 98 07/29/18 14:53 Results & Data Laboratory Results Laboratory Results - last 24 hr 07/27/18 20:00 Urine Butalbital NEGATIVE Urine Amobarbital NEGATIVE Urine Pentobarbital NEGATIVE Urine Phenobarbital >8000 A Urine Secobarbital NEGATIVE Current Inpatient Medications Current Inpatient Medications: Current Inpatient Medications Acetaminophen (Tylenol) 650 mg PO Q4H PRN PRN Reason: Headache or Minor Fever Stop: 08/27/18 02:14 Al Hydrox/Mg Hydrox/Simethicone (Maalox) 30 ml PO Q4H PRN PRN Reason: GI Upset Stop: 08/27/18 02:14 Bismuth Subsalicylate (Kaopectate) 15 ml PO PRN PRN PRN Reason: Loose Stool Stop: 08/27/18 02:14 Gabapentin (Neurontin) 200 mg PO BID YASMANI Stop: 08/29/18 20:59 Last Admin: 07/30/18 21:18 Dose: 200 mg Hydroxyzine HCl (Vistaril) 50 mg PO HSZ PRN PRN Reason: Insomnia Stop: 08/27/18 02:14 Hydroxyzine HCl (Vistaril) 25 mg PO Q4H PRN PRN Reason: Anxiety Stop: 08/27/18 02:14 Magnesium Hydroxide (Milk Of Magnesia) 30 ml PO DAILY PRN PRN Reason: Heartburn Stop: 08/27/18 02:14 Phenobarbital (Phenobarbital) 64.8 mg PO BID YASMANI Stop: 08/27/18 08:59 Last Admin: 07/30/18 21:18 Dose: 64.8 mg Quetiapine Fumarate (Seroquel) 300 mg PO HS YASMANI Stop: 08/29/18 21:59 Last Admin: 07/30/18 21:18 Dose: 300 mg Sodium Chloride (Moore Nasal) 1 - 2 sprays NA PRN PRN PRN Reason: Nasal Dryness/Congestion Stop: 08/27/18 02:14 Post Discharge Appointments Primary Care Physician Name Of Family Doctor: Dr Ephraim Maravilla - [address] Care Provider Appointment Comment: [address] [place] [address] [address], [place] [address] Psychiatrist Name of Psychiatrist: Marleny Boyer PA-C Psychiatrist's Psychiatric Appointment Comment: [address], [place] [address] Therapist Name of Therapist: Marleny Allen Therapist's Therapy Appointment Comment: [address], [place] [address] Venue Manager Name of Venue Manager: Marleny Morgan Phone Number for Venue Manager: Case Management Appointment Comment: [address], [place] [address] Contact Information Discharge Discharge Address: [address], [place] [address] CPT Code CPT Code 28077
[2018-07-31] MEDS: GABAPENTIN 100 MG CAP PO SCH ×2 (09:28→21:21)
[2018-07-31] MEDS: PHENobarbital 32.4 MG TAB PO SCH ×2 (09:29→21:25)
--- NOTE | 2018-07-31 10:32 | Neurology Progress Note ---
Date of Service July 31, 2018 Assessment & Plan (1) Seizure: Seizure disorder diagnosed at age 10 although not electrically confirmed as far as I can gather from speaking with the patient. She has had 2 additional seizure-like episodes since my assessment of her yesterday. As before, these episodes seem consistent with nonepileptic seizures. She is not significantly altered after these episodes and returns to normal baseline neurological functioning. However, breakthrough electrically based organic seizures are not excluded in this patient. Continue with gabapentin 200 mg twice daily as the dosage was just increased at yesterday's evening dose. Continue with phenobarbital at the current dosage. If she experiences additional similar seizure-like episodes would increase her gabapentin further at that time. Follow-up with results of today's EEG which should be completed this morning. As before, this patient will need to follow-up with Dr. Moreno, her neurologist in [place], for ongoing management of her seizure disorder. Attempt to obtain outpatient records from his office if available including the recently completed ambulatory EEG results. Subjective Follow-up for seizures The patient is a 22-year-old female who is currently admitted to the behavioral health unit for management of depression with psychosis. She reports a history of seizure disorder diagnosed at age 10 with extensive generally unremarkable neurologic evaluations over her lifetime and intolerance to trials of multiple anticonvulsants. She has most recently been following with Dr. Moreno, a neurologist in [place], who has been prescribing her phenobarbital and most recently gabapentin. She experienced 2 seizure-like episodes prior to my assessment of her yesterday and subsequently experienced 2 additional very similar episodes. She does recall experiencing generalized tingling and feeling of tremulousness prior to episode onset. She has been able to alert nursing staff at symptom onset. According to nursing documentation her most recent episode occurred at around 530 this morning. She was observed to have closure of the eyes and mouth, associated shaking movements of the limbs, as well as associated lifting of her head off of her bed pillow area no incontinence or tongue bite occurred. The episode lasted for about 3 minutes with the patient returning to her normal baseline about 5 minutes afterwards. She currently denies any fever, headache, weakness, vision change, or sensory loss. Constitutional: no fever and no chills Eyes: no blind spots Neurologic: as per Subjective / HPI Physical Exam 2 Vital Signs (Past 24 Hours): Last Vital Signs Temp 36.5 C 07/31/18 06:45 Pulse 66 07/31/18 06:45 Resp 16 07/31/18 06:45 BP 104/67 07/31/18 06:45 Pulse Ox 98 07/29/18 14:53 Physical Exam: The patient is alert and fully oriented. Recent and remote memory intact. Attention and concentration normal. Patient exhibits a normal spontaneous speech pattern as well as an age-appropriate fund of knowledge and normal vocabulary. Visual edgar full to confrontation. Visual acuity normal. Pupils equal round react to light and accommodation. Eye movements normal. There is no nystagmus. Facial sensation and expression intact. No facial droop. Tongue and palate are midline. Shoulder shrug and hearing intact. There is no dysdiadochokinesia or dysmetria with finger to nose or heel to cross bilaterally.
--- NOTE | 2018-07-31 11:31 | Procedure Note ---
EEG Procedure Note Date of Service July 31, 2018 Start / End Times Start Time: 10:40 AM End Time: 11 AM Referring Physician oLndon Falcon MD History Reported history of seizure disorder with recent breakthrough seizures. Home Medication List Home Medications Medication Instructions Recorded Confirmed Type phenobarbital 64.8 mg PO BID 05/05/18 07/28/18 History cariprazine [Vraylar] 1.5 mg PO HS 07/28/18 07/28/18 History clindamycin HCl 300 mg PO Q8 07/28/18 07/28/18 History gabapentin 100 mg PO BID 07/28/18 07/28/18 History olanzapine 2.5 mg PO HS 07/28/18 07/28/18 History quetiapine 25 mg PO BID 07/28/18 07/28/18 History quetiapine 100 mg PO HS 07/28/18 07/28/18 History Inpatient Medication List Gabapentin (Neurontin) 200 mg PO BID [facility] Stop: 08/29/18 20:59 Last Admin: 07/31/18 09:28 Dose: 200 mg Admin: 07/30/18 21:18 Dose: 200 mg Phenobarbital (Phenobarbital) 64.8 mg PO BID Y[facility] Stop: 08/27/18 08:59 Last Admin: 07/31/18 09:29 Dose: 64.8 mg Admin: 07/30/18 21:18 Dose: 64.8 mg Admin: 07/30/18 08:44 Dose: 64.8 mg Admin: 07/29/18 21:04 Dose: 64.8 mg Admin: 07/29/18 09:03 Dose: 64.8 mg Admin: 07/28/18 21:24 Dose: 64.8 mg Admin: 07/28/18 09:22 Dose: 64.8 mg Quetiapine Fumarate (Seroquel) 300 mg PO HS [facility] Stop: 08/29/18 21:59 Last Admin: 07/30/18 21:18 Dose: 300 mg Discontinued Medications Gabapentin (Neurontin) 100 mg PO BID YASMANI Stop: 08/27/18 08:59 Last Admin: 07/30/18 08:44 Dose: 100 mg Admin: 07/29/18 21:04 Dose: 100 mg Admin: 07/29/18 09:03 Dose: 100 mg Admin: 07/28/18 21:24 Dose: 100 mg Admin: 07/28/18 09:04 Dose: 100 mg Clindamycin~!Non- Formulary Patient's Own Med 1 ea N/A Q8 [facility] Stop: 07/30/18 14:01 Last Admin: 07/30/18 14:35 Dose: 300 mg Admin: 07/30/18 06:28 Dose: 300 mg Admin: 07/29/18 21:05 Dose: 300 mg Admin: 07/29/18 14:06 Dose: 300 mg Admin: 07/29/18 05:58 Dose: 300 mg Admin: 07/28/18 21:25 Dose: 300 mg Admin: 07/28/18 13:39 Dose: 300 mg Admin: 07/28/18 06:32 Dose: 300 mg Phenobarbital (Phenobarbital) 32.4 mg PO BID [facility] Stop: 08/27/18 08:59 Last Admin: 07/28/18 19:18 Dose: Not Given Quetiapine Fumarate (Seroquel) 25 mg PO BID@0900,1400 [facility] Stop: 08/27/18 08:59 Last Admin: 07/28/18 13:39 Dose: 25 mg Admin: 07/28/18 09:05 Dose: 25 mg Quetiapine Fumarate (Seroquel) 100 mg PO [facility] Stop: 08/27/18 21:59 Last Admin: 07/28/18 03:18 Dose: 100 mg Quetiapine Fumarate (Seroquel) 200 mg PO [facility] Stop: 08/27/18 21:59 Last Admin: 07/29/18 21:04 Dose: 200 mg Admin: 07/28/18 21:25 Dose: 200 mg Description This is a 21 electrode EEG with a single channel dedicated to limited EKG. The electrodes were placed in accordance with the International 10-20 system. There is a posterior dominant rhythm of 8-9 Hz which is observed throughout the entire study and is symmetrically distributed and attenuates with eye-opening. There is a normal anterior to posterior organization. Photic stimulation is unremarkable. Hyperventilation is not performed. There is no focal slowing. There are no epileptiform abnormalities. Interpretation This is a normal-appearing EEG demonstrating the awake state. Clinical Correlation A normal EEG does not completely exclude a diagnosis of epilepsy. Further clinical correlation needed. Please see yesterday's neurology consultation and today's progress note for further details.
[2018-07-31] MEDS: LACOSAMIDE 50 MG TABLET PO SCH ×2 (16:22→21:21)
[2018-07-31] MEDS: QUETIAPINE FUMARATE 300 MG TABLET PO SCH (21:21)
[2018-08-01 06:51] VITALS: TEMP 98.2
[2018-08-01] MEDS: GABAPENTIN 100 MG CAP PO SCH (08:48)
[2018-08-01] MEDS: PHENobarbital 32.4 MG TAB PO SCH (08:48)
[2018-08-01] MEDS: LACOSAMIDE 50 MG TABLET PO SCH (08:49)
--- NOTE | 2018-08-01 09:37 | Neurology Progress Note ---
Date of Service August 01, 2018 Assessment & Plan (1) Seizure disorder: Seizure disorder, possibly partial complex seizures with secondary generalization. Her condition reportedly began in childhood. Trials of multiple medications have either been ineffective or not tolerated in the past. She is notably neurologically intact. The episodes occur in the current context of depression with psychosis which appears to be stable. Increase Vimpat to 100 mg twice daily. Continue with gabapentin and phenobarbital at the current dosages. If this patient has further convulsive episodes I would recommend transfer to a tertiary center for continuous video EEG monitoring. I would like this patient to have an MRI of the brain with and without contrast , seizure protocol. Subjective Follow-up for seizures The patient has had several additional, similar seizure-like episodes since my assessment of her yesterday and had recommended starting Vimpat in addition to her phenobarbital and gabapentin. Her most recent seizure occurred at around 7: 39 this morning according to nursing notes. The episode lasted for about 3 minutes and was not associated with any injuries, tongue bite, or incontinence. The episode resolved on its own and she returned to her baseline. Her vital signs were stable during the episode. Currently, the patient does not have any specific complaints. She denies headache, vision change, dizziness, weakness, sensory loss, or problems with coordination or balance. She denies any specific side effects related to recently starting Vimpat. No rash or hives. Constitutional: no fever and no chills Eyes: no blind spots and no diplopia Integumentary: no rash and no pruritus Neurologic: as per Subjective / HPI Physical Exam 2 Vital Signs (Past 24 Hours): Last Vital Signs Temp 36.8 C 08/01/18 06:50 Pulse 73 08/01/18 06:50 Resp 16 08/01/18 06:50 BP 103/65 08/01/18 06:50 Pulse Ox 98 07/29/18 14:53 Physical Exam: The patient is alert and fully oriented. Recent and remote memory intact. Attention and concentration normal. Patient exhibits a normal spontaneous speech pattern as well as an age-appropriate fund of knowledge and normal vocabulary. Visual edgar full to confrontation. Visual acuity normal. Pupils equal round reactive to light and accommodation. Eye movements normal. There is no nystagmus. There is no facial droop or weakness. Hearing intact. Tongue and palate midline. There is no dysdiadochokinesia with finger to nose or heel to cross bilaterally. Gait and station normal. Results & Data Diagnostic Findings An EEG completed yesterday was normal.
[2018-08-01] MEDS ORDERED: LACOSAMIDE 50 MG TABLET PO ONE (10:15)
--- NOTE | 2018-08-01 10:21 | Psychiatric Progress Note ---
Date of Service August 01, 2018 Impression / Recommendations Impression Mood has improved and suicidal ideation has resolved. The patient is psychiatrically stable for transfer to a tertiary care center for continuous EEG monitoring, per neurology recommendations. She continues to have several episodes of seizure activity daily, which are impairing her ability to function. (1) Suicidal ideation: 07/28 - admitted voluntarily to a locked behavioral health unit with every 15 minute suicide checks to ensure safety. - encourage participation in group and recreational programming - assist in development of healthy and effective coping strategies - family meeting held with mother, sister, and friend -they agreed to secure the patient's weapon collection. 07/30 - Denies SI at this time, but recognizes limited opportunities while on the unit, which triggers fewer thoughts. She is unable to guarantee her safety should she be discharged and come across these triggers. This is especially concerning as the voices which "egg me on when I have those thoughts" remain unimproved. 08/01 - Patient is denying suicidal thoughts, and has been in good behavioral control here. She is psychiatrically stable for transfer to a tertiary care center as above. (2) Major depressive disorder, single episode, severe w psychotic behavior: 07/28 - Consolidate and increase quetiapine to 200mg qHS. Discontinue olanzapine and Vraylar - Request records from [facility] hospitalizations - Gather collateral information from mother and friends to clarify recent medications trials and response 07/29 - Continue quetiapine 200mg qHS, may require further titration - Reviewed fasting labs, glucose, triglycerides, HDL and LDL WNL; total cholesterol elevated at 231 - pt reports history of elevated cholesterol with previous labwork, ideally would be included in records from other hospitalizations to determine if there is a significant difference. - Attempt to gather more complete history from family meeting today, requests have been made for records but likely won't acquire until after the weekend. 07/30 - Increase quetiapine to 300mg qHS - Continue to encourage group participation - Records from outpatient providers requested upon admission, will follow-up today following the weekend, in hopes to gather collateral information 07/31 - Symptoms improving, but mood still low and does not feel safe outside of the hospital. - Continue current medications, participation in groups and therapy, and working on healthy coping skills and discharge safety plan. 08/01 - Mood continues to improve, and suicidal thoughts have resolved. She will follow-up with her outpatient psychiatrist and therapist at [facility] in [place] after discharge. (3) Seizure disorder: 07/28 - Continue current medication regimen: phenobarbital 64.8mg BID - Continue seizure and fall precautions - Pt history briefly shared with on-call provider for neurology, no indication for formal consult at this time 07/29 - Will require ongoing follow-up with outpatient neurologist to address change in seizures - No indication for neurology consult as of today's visit - Would recommend considering head imaging to determine if other cause for auditory hallucinations, suggest completing as an outpatient 07/30 - First episodes of seizure activity on the unit occurring around shift change yesterday afternoon (1400 - described to be grand mal in character) and early this morning (0300 - described to be petite mal in character). Neurology briefly informed of patient's status on our unit at time of admission, will now request formal neurology consultation to address increased seizure episodes following outpatient medication changes. - Records had been requested from outpatient neurology, will follow up today to see if the office is open and additional information can be sent for neurology review. 07/31 - Appreciate Dr. Falcon's recommendations. Patient continues to have episodes of seizure like activity, will await EEG reading, and consider transfer to inpatient neuro unit if she has prolonged changes in mental status or neurological deficits. - Continue current seizure medications, and schedule follow-up with outpatient neurologist, Dr. Moreno. 08/01 -Appreciate neurology's recommendations and will refer to tertiary care center for continuous video EEG monitoring. (4) Lyme disease: 07/29 - Would recommend considering head imaging to determine if other cause for auditory hallucinations, suggest completing as an outpatient 07/31 -patient reports she had recent head imaging and her outpatient neurologist has the results. As above, scheduled follow-up with outpatient neurology. Inventory Assets Strengths: willingness for treatment, support of mother and friends Needs: effective medication regimen, development of healthy coping strategies Risk Factors Assessment Male: No : Yes Do You Have Access To A Gun?: No Health Problems: Yes Mental Health Diagnoses: Yes Substance Use Disorders: No Previous Attempt: No Family History of Suicide: Yes Previous Psychiatric Hospitalization: Yes Hopelessness: No Smoker: No Protective Factors Assessment Quaker Beliefs: Yes : No Responsible for Young Children: No Employed: No (disabled) Stable Relationships: No Supportive Family: Yes Interval History Identifying Information ROYA HDEZ is a 22-year-old F who currently lives in [place], [place] with her mother, has a history of Lyme disease, prolonged QTc, Grand Mal seizures, insomnia, P.O.T.S, psychosis NOS, and MTHFR DNA mutation. Pt was admitted on 01:09 on a 201 voluntary commitment for worsening depression and SI stemming from auditory and visual hallucinations occurring for the past 3-4 months. Information is gathered from the patient and is considered to be reliable, but somewhat limited. Chief Complaint "Tired". Review of Systems Sleep Information Total Hours of Sleep: 7.75 Sleep Comments: pt appeared to sleep 1.25 hrs during evening shift. pt appeared to have seizure activity. Constant close observation during the night. pt on q-15 minute checks Meal Information Percent Meal Consumed - Breakfast: 75 Percent Meal Consumed - Lunch: 100 Percent Meal Consumed - Dinner: 50 Subjective Subjective Patient was seen & assessed and interval progress reviewed with Treatment Team. Staff reports she continues to have episodes of seizure activity, which have impaired her ability to function or participate in treatment. She was seen by the neurologist, started on Vimpat, and her dose increased this morning, while gabapentin and phenobarbital were continued. He recommended transfer to a tertiary center for continuous video EEG monitoring, as well as a brain MRI. On my assessment, she is resting in bed, and states she is tired due to her multiple seizures. She denies suicidal thoughts, and states that her primary concern at this time is having her seizures worked up and adequately treated. She notes that her seizure activity has impaired her ability to function at home , as she has not been able to enjoy her regular activities like going to sabianism due to the frequency of her seizures. She is willing for transfer to a tertiary care hospital, and we will refer her today. Physical Exam Mental Examination Well-nourished well-developed white female appearing her stated age. Lying in bed in no acute distress. Good eye contact and no abnormal movements. Mood is "tired," and affect is restricted to tired and congruent. Thoughts are goal- directed, and she denies SI, HI, and hallucinations. Speech is soft, normal tone. She is alert and oriented, with fair insight and judgment. Vital Signs (Past 24 Hours) Last Vital Signs Temp 36.8 C 08/01/18 06:50 Pulse 73 08/01/18 06:50 Resp 16 08/01/18 06:50 BP 103/65 08/01/18 06:50 Pulse Ox 98 07/29/18 14:53 Results & Data Current Inpatient Medications Current Inpatient Medications: Current Inpatient Medications Acetaminophen (Tylenol) 650 mg PO Q4H PRN PRN Reason: Headache or Minor Fever Stop: 08/27/18 02:14 Al Hydrox/Mg Hydrox/Simethicone (Maalox) 30 ml PO Q4H PRN PRN Reason: GI Upset Stop: 08/27/18 02:14 Bismuth Subsalicylate (Kaopectate) 15 ml PO PRN PRN PRN Reason: Loose Stool Stop: 08/27/18 02:14 Gabapentin (Neurontin) 200 mg PO BID [facility] Stop: 08/29/18 20:59 Last Admin: 08/01/18 08:48 Dose: 200 mg Hydroxyzine HCl (Vistaril) 50 mg PO HSZ PRN PRN Reason: Insomnia Stop: 08/27/18 02:14 Hydroxyzine HCl (Vistaril) 25 mg PO Q4H PRN PRN Reason: Anxiety Stop: 08/27/18 02:14 Lacosamide (Vimpat) 100 mg PO BID [facility] Stop: 08/31/18 20:59 Magnesium Hydroxide (Milk Of Magnesia) 30 ml PO DAILY PRN PRN Reason: Heartburn Stop: 08/27/18 02:14 Phenobarbital (Phenobarbital) 64.8 mg PO BID [facility] Stop: 08/27/18 08:59 Last Admin: 08/01/18 08:48 Dose: 64.8 mg Quetiapine Fumarate (Seroquel) 300 mg PO HS [facility] Stop: 08/29/18 21:59 Last Admin: 07/31/18 21:21 Dose: 300 mg Sodium Chloride (Cole Nasal) 1 - 2 sprays NA PRN PRN PRN Reason: Nasal Dryness/Congestion Stop: 08/27/18 02:14 Post Discharge Appointments Primary Care Physician Name Of Family Doctor: Dr Ephraim Maravilla - [address] Primary Care Provider Appointment Comment: [address], [place] [address] Psychiatrist Name of Psychiatrist: Marleny Boyer PA-C Psychiatrist's Psychiatric Appointment Comment: [address], [place] [address] Therapist Name of Therapist: Marleny Granados Therapist's Date of Therapist Appointment: 08/06/18 Time of Therapist Appointment: 1pm Therapy Appointment Comment: [address], [place] [address] Human Service Specialist Name of Human Service Specialist: Marleny Morgan Phone Number for Human Service Specialist: Case Management Appointment Comment: [address], [place] [address] Contact Information Discharge Discharge Address: [address], [place] [address] CPT Code CPT Code 87085
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
--- NOTE | 2018-08-01 14:00 | Family Medicine Progress Note ---
Date of Service August 01, 2018 Assessment & Plan (1) Seizure: Seizure disorder EEG normal vital signs stable throughout Transfer arranged for [facility] tomorrow morning Patient on Phenobarbital and Lacosamide for seizure prophylaxis has not seemed to effective yet Depression/Suicidality Not currently actively suicidal per psychiatry Is currently (and chronically) hearing voices and seeing figures that aren' t there Stable per Psych (2) Suicidal ideation: (3) Major depressive disorder, single episode, severe w psychotic behavior: Supervising Physician Co-Signing Physician Notes Attending attestation Pt seen and examined in concert with Dr. Davila. In agreement with the documented findings as noted in the resident documentation with any exceptions or additions as noted here. Patient reports frequent recurrent episodes of seizure activity which is reported to her as 2-3 minutes of clenching of all her muscles preceded by an aura of tingling anxiety and anteceded by feeling somewhat out of it but otherwise rapidly returning to baseline function with loss of consciousness which has been becoming more frequent. Does complain of aching pain of muscles diffusely, worse with activity. Mood has somewhat improved since medication changes - hallucinations are present but patient remains aware, improved energy and outlook. Patient reports remote history of seizure evaluation during which she had no such episodes over a protracted period of time. Is willing to participate in transfer to tertiary facility for further evaluation. On examination, S1/S2 nl RRR no MCG. CTAB. Abd NT/ND BS+ve. B/L shoulder and upper back tightness with TTP, worsened with neck flexion. CNII-XII grossly intact as tested, though inconsistent voluntary movements during examination. Patellar reflexes 2+ bilaterally. Strength testing is inconsistent but generally appears 5/5 throughout, though with variable pressure and effort. On evaluation, patient with minimal use of RUE but good movement when distracted, no apparent TTP on examination. Seizure disorder - neurology consultation appreciated - patient states that mother reports allergy to lacosamide, agree w/ D/C. Continue gabapentin and phenobarbatol. Agree w/ MRI and recommendation for tertiary center neurology eval for definitive categorization of symptoms. Major depressive disorder, single episode, severe with suicidal ideation and psychosis - continue quetiapine and hydroxyzine, psychiatric input appreciated. Else see resident documentation as noted. Sunita Hendricks is a 22 year old woman with a past medical history significant for Major Depressive disorder with psychotic behavior and an unidentified seizure disorder since age 10 who initially presented for suicidal ideation and recurrent seizures. She was admitted to the behavioral health unit and was discharged today as she is no longer actively suicidal. She is currently being worked up by neurology for her seizure disorder. In the last month she has been having seizure like episodes several times per day. She describes a brief aura followed by tightening of her body for several minutes. After the seizures she feels fatigued and typically wants to sleep. She usually returns to normal after several hours. She had an EEG which did not show any changes and as a child she had a week long work up at [facility] which was unable to detect any neurological abnormalities. She has already been accepted to a neurology bed in [facility] tomorrow morning. Constitutional: + fatigue, + malaise and + weakness; no fever, no chills and no body aches Respiratory: no cough, no chest congestion and no dyspnea Cardiovascular: no chest pain, no dyspnea and no dyspnea at rest Gastrointestinal: no abdominal pain, no nausea and no vomiting Neurologic: + generalized weakness, + tingling and + problem reported (Seizures x4 in last 24 hours); no falls, no paralysis and no loss of sensation Physical Exam 2 Vital Signs (Past 24 Hours): Last Vital Signs Temp 36.8 C 08/01/18 13:41 Pulse 115 H 08/01/18 13:41 Resp 16 08/01/18 13:41 BP 103/65 08/01/18 13:41 Pulse Ox 98 08/01/18 13:41 Constitutional: well developed and well nourished; no acute distress Respiratory: normal respiratory effort; no respiratory distress, no labored breathing, no retractions, does not use accessory muscles and no cough Auscultation: lungs clear to auscultation bilaterally; no crackles, no rales, no rhonchi and no wheezes Cardiovascular: RRR, no murmur, no edema Gastrointestinal (Abdomen): normal bowel sounds, soft, nontender, no hepatosplenomegaly Skin: no rashes, warm and dry
--- NOTE | 2018-08-01 19:29 | Communication Note ---
Date of Service: August 01, 2018 Patient was initially scheduled for transfer to [facility] today for continuous video EEG monitoring, however they requested that she not be transferred until tomorrow morning so transfer was postponed until then. Nursing staff reported she had 3 sequential seizures this evening, during which her oxygen saturation decreased to 76% and heart rate ha to 245. Dr. Godwin saw her and recommended transfer to the PCU.
[2018-08-01 20:00] VITALS: BP 113/81; PULSE 121; O2SAT 100
[2018-08-01] MEDS ORDERED: LACOSAMIDE 50 MG TABLET PO SCH (21:00)
== END 2018-08-01 19:50 | disposition short-term general hospital (02) | DRG 885 ==
LOC: ED 19:40 → 3S 07-28 01:09
DX: R45.851 Suicidal ideations; F33.3 Major depressive disorder, recurrent, severe with psychotic symptoms; G40.409 Other generalized epilepsy and epileptic syndromes, not intractable, without status epilepticus; Z86.19 Personal history of other infectious and parasitic diseases

== ENCOUNTER 2018-08-01 19:33 | Observation (INO) ==
[2018-08-01] MEDS ORDERED: ACETAMINOPHEN 325 MG TAB PO PRN (20:15)
[2018-08-01] MEDS ORDERED: SODIUM CHLORIDE 0.65% NA SOLN 45 ML (OCEAN) PRN (20:20)
[2018-08-01] MEDS ORDERED: PATIENT'S HEIGHT AND/OR WEIGHT NEEDED SCH (20:45)
--- NOTE | 2018-08-01 20:56 | History & Physical Report ---
Date of Service August 01, 2018 Assessment & Plan (1) Seizure disorder: 22-year-old female was admitted for observation on 01 August 2018 after being technically discharged from the psychiatric inpatient service on the same date for interim monitoring of her suicidal ideations, major depression with psychotic features, and seizure disorder. Please review today's progress note by her primary team as well as the psychiatry discharge summary on [id number] for recent care. Seizure disorder: Per today's progress notes, patient has a history of frequent 2-3-minute long episodes. It is unclear if these are true seizures versus pseudoseizures. She remains on gabapentin, lacosamide, and phenobarbital. - She remains on track for transfer to [place] tomorrow for tertiary evaluation. - Will keep her on PCU telemetry for monitoring given her frequent episodes. - Will keep her on seizure precautions. - Wrote an as needed order for Ativan if she has a seizure lasting over five minutes. Nursing should then call her treatment team or overnight warehouse shift supervisor if it appears she has a seizure > five minutes or with other related concerns. Suicidal ideation: Apparently she is no longer actively suicidal. - Will keep her on a one-to-one sitter due to history of SI. Major depression with psychotic features: Patient says she continues to hear voices but says that they do not direct self-harm. She remains on her quetiapine. Code status: Full code Diet: Regular DVT prophy: SCDs. PT/OT: Deferred. Disbo: Admitted to PCU telemetry for observation. Planed transfer to [place] tomorrow. (2) Suicidal ideation: (3) Major depressive disorder, single episode, severe w psychotic behavior: History of Present Illness Primary Care Provider: NO PCP 22-year-old female is being transferred from the inpatient psychiatric service to the medicine service for overnight monitoring of seizure-like activity. Please see both the full discharge summary from psychiatry dated [id number] as well as the progress note by her primary care team of the same date. This H&P is performed as an administrative function given she is technically discharged from the inpatient service and readmitted under the medicine service. I first met the patient as I was coming onto the overnight call service. The patient was still in the psychiatric [facility], lying on the floor in the common room with a nurse nearby. Patient's nurse said that she had about a 4-minute seizure-like episode and that she was in her post seizure state. She says this was the third such episode today. At that time, the patient's eyes were open, she was not making any movements, did not appear in acute distress, but was not answering any questions. After the patient was transferred to the medical [facility], I spoke with the patient again. At that time she was lying supine in her bed with her arms to her chest. She did not volunteer any information. She stated that she felt sore all over but denies any focal pains. We discussed that she was on track to go to [place] tomorrow and she agreed to this. She had no particular voiced complaints. When asked if she still heard voices, she said yes. When asked what they told her, she says "many things" to include "you should not be here". She denies the voices telling her to harm herself. - Past medical history includes severe major depressive disorder with psychotic behavior, suicidal ideation, seizure disorder, and Lyme disease. - No noted surgical history. - Social history: No reported history of smoking. Allergies Allergy/AdvReac Type Severity Reaction Status Date / Time clonazepam Allergy Hallucinati Unverified 07/28/18 00:14 ng amitriptyline AdvReac Hives Unverified 07/28/18 00:14 carbamazepine [From Tegretol] AdvReac Hives Unverified 07/28/18 00:14 cephalexin [From Keflex] AdvReac Hives Unverified 07/28/18 00:14 clorazepate dipotassium AdvReac Hives Unverified 07/28/18 00:14 divalproex sodium AdvReac Hives Unverified 07/28/18 00:14 [From Depakote] lamotrigine [From Lamictal] AdvReac Hives Unverified 07/28/18 00:14 levetiracetam [From Keppra] AdvReac Hives Unverified 07/28/18 00:14 phenytoin [From Dilantin] AdvReac Hives Unverified 07/28/18 00:14 sertraline [From Zoloft] AdvReac Hives Unverified 07/28/18 00:14 topiramate [From Topamax] AdvReac Hives Unverified 07/28/18 00:14 trazodone AdvReac Hives Unverified 07/28/18 00:14 Home Medications Home Medications Medication Instructions Recorded Confirmed Type phenobarbital 64.8 mg PO BID 05/05/18 07/28/18 History gabapentin 200 mg PO BID #1 cap 08/01/18 Rx lacosamide [Vimpat] 100 mg PO BID #1 tab 08/01/18 Rx quetiapine 300 mg PO HS #1 tab 08/01/18 Rx Past Med/Surg History Social History Current Living Situation: Family Feels Safe at Home: Yes Safety Concerns: Feels Safe At This Time Smoking Status: Never smoker Hx Alcohol Use: No Hx Substance Use: No Beliefs That Will Affect Care: None Preferred Language: Tajik Review of Systems Constitutional: Denies fevers, chills, focal weakness Eyes: Denies any visual loss or diplopia ENT: Denies any ear/nose/throat pain or difficulty speaking or swallowing Respiratory: Denies any dyspnea, cough, hemoptysis Cardiovascular: Denies any chest pain or feeling of edema Gastrointestinal: Denies any abdominal pain, nausea/vomiting/diarrhea Musculoskeletal: Denies any acute extremity pains, myalgias, or focal weakness Skin: Denies any known acute rashes or lesions Neuro: See HPI. Psych: See HPI. Physical Exam 2 Physical Exam: GENERAL: - Initially met patient on the psychiatry [facility]. Reportedly she just had a 4- minute seizure-like episode. At that time her eyes were open, she was lying on the floor in a position, but she was not answering questions. -Full reexamination occurred when she was transferred to PCU/telemetry. At that time she was awake, alert, conversant, stated she still felt sore all over , but was not in acute distress. HENT: Normocephalic, atraumatic. Oropharynx unremarkable. EYES: Normal conjunctiva. Sclera non-icteric. NECK: Inspection normal. Non-tender. Supple and full ROM. No nuchal rigidity. CARDIAC: +S1S2 RRR, no murmurs. RESPIRATORY: Clear to auscultation. No wheezes or rales. Normal respiratory effort. GI: +BS, soft, non-distended. No tenderness to palpation. No rebound or guarding. No appreciable masses. EXTREMITIES: No pedal edema or calf tenderness. She prefers to keep her arms in a flexed position to her chest but can extend them slowly. She prefers not to move her legs. When asked, she has normal bean picker machine operator strength and dorsiflexion of her feet bilaterally. NEURO: No gross neuro deficits. Code Status & VTE Plan Code Status Full code VTE Prophylaxis Plan VTE Prophylaxis will be ordered: Yes Supervising Physician Co-Signing Physician Notes Attending attestation Pt seen and examined in concert with Dr. Davila. In agreement with the documented findings as noted in the resident documentation with any exceptions or additions as noted here. Pt reports diffuse myalgias common with increased frequency of seizure activity described. Multiple such episodes the last few days, rarely lasting > 5 minutes and requiring ativan with preceding aura. H/O vEEG previously without any episodes x 1 wk. Significant intolerance of multiple seizure medications. Mood has improved since inpatient psychiatric stay, still with opportunistic suicidal ideation as well as visual and auditory hallucinations. On examination, S1/S2 nl RRR no MCG. CTAB. Abd NT/ND BS+ve. Diffuse upper back and UE TTP with spasm of the b/l trapezius at the base of the neck. CNII-XII grossly intact, STR 5/5 throughout b/l UE/LE. Patellar reflexes 2+ Seizure disorder - neurology consultation appreciated - intent to transfer to tertiary facility for further evaluation of ?non-epileptic seizure. Continue gabapentin and phenobarbital. Monitor for reaction to lacosamide as patient's mother ?s allergy in the past (anxiety). Ativan for episodes > 5 minutes. Seizure precautions Major depressive episoe w/ psychotic features and suicidal ideation - 1:1, continue quetiapine. Resident Activity Tracking Resident Involvement: Resident Care Provided Care Provided: Adult Hospital Medicine
[2018-08-01] MEDS ORDERED: QUETIAPINE FUMARATE 300 MG TABLET PO SCH (21:00)
[2018-08-01] MEDS ORDERED: LACOSAMIDE 50 MG TABLET PO SCH (21:00)
[2018-08-01] MEDS: PHENobarbital 32.4 MG TAB PO SCH (22:15)
[2018-08-01] MEDS: GABAPENTIN 100 MG CAP PO SCH (22:16)
[2018-08-01] MEDS: LORazepam 2 MG/4 ML VIAL IV PRN (22:16)
[2018-08-01] MEDS: LACOSAMIDE 50 MG TABLET PO SCH (22:23)
[2018-08-02] MEDS: LORazepam 2 MG/4 ML VIAL IV PRN (07:30)
--- NOTE | 2018-08-02 09:17 | Discharge Summary ---
Date of Service August 02, 2018 Admission HPI Per Admitting Provider 22-year-old female is being transferred from the inpatient psychiatric service to the medicine service for overnight monitoring of seizure-like activity. Please see both the full discharge summary from psychiatry dated [id number] as well as the progress note by her primary care team of the same date. This H&P is performed as an administrative function given she is technically discharged from the inpatient service and readmitted under the medicine service. I first met the patient as I was coming onto the overnight call service. The patient was still in the psychiatric [facility], lying on the floor in the common room with a nurse nearby. Patient's nurse said that she had about a 4-minute seizure-like episode and that she was in her post seizure state. She says this was the third such episode today. At that time, the patient's eyes were open, she was not making any movements, did not appear in acute distress, but was not answering any questions. After the patient was transferred to the medical [facility], I spoke with the patient again. At that time she was lying supine in her bed with her arms to her chest. She did not volunteer any information. She stated that she felt sore all over but denies any focal pains. We discussed that she was on track to go to [place] tomorrow and she agreed to this. She had no particular voiced complaints. When asked if she still heard voices, she said yes. When asked what they told her, she says "many things" to include "you should not be here". She denies the voices telling her to harm herself. - Past medical history includes severe major depressive disorder with psychotic behavior, suicidal ideation, seizure disorder, and Lyme disease. - No noted surgical history. - Social history: No reported history of smoking. Admission Exam Per Admitting Provider GENERAL: - Initially met patient on the psychiatry [facility]. Reportedly she just had a 4- minute seizure-like episode. At that time her eyes were open, she was lying on the floor in a position, but she was not answering questions. -Full reexamination occurred when she was transferred to PCU/telemetry. At that time she was awake, alert, conversant, stated she still felt sore all over , but was not in acute distress. HENT: Normocephalic, atraumatic. Oropharynx unremarkable. EYES: Normal conjunctiva. Sclera non-icteric. NECK: Inspection normal. Non-tender. Supple and full ROM. No nuchal rigidity. CARDIAC: +S1S2 RRR, no murmurs. RESPIRATORY: Clear to auscultation. No wheezes or rales. Normal respiratory effort. GI: +BS, soft, non-distended. No tenderness to palpation. No rebound or guarding. No appreciable masses. EXTREMITIES: No pedal edema or calf tenderness. She prefers to keep her arms in a flexed position to her chest but can extend them slowly. She prefers not to move her legs. When asked, she has normal timber hand strength and dorsiflexion of her feet bilaterally. NEURO: No gross neuro deficits. Principal Diagnosis Seizure like activity Discharge Exam GENERAL: -Full reexamination occurred when she was transferred to PCU/telemetry. At that time she was awake, alert, conversant, stated she still felt sore all over , but was not in acute distress. HENT: Normocephalic, atraumatic. Oropharynx unremarkable. EYES: Normal conjunctiva. Sclera non-icteric. NECK: Inspection normal. Non-tender. Supple and full ROM. No nuchal rigidity. CARDIAC: +S1S2 RRR, no murmurs. RESPIRATORY: Clear to auscultation. No wheezes or rales. Normal respiratory effort. GI: +BS, soft, non-distended. No tenderness to palpation. No rebound or guarding. No appreciable masses. EXTREMITIES: No pedal edema or calf tenderness. She prefers to keep her arms in a flexed position to her chest but can extend them slowly. She prefers not to move her legs. When asked, she has normal timber hand strength and dorsiflexion of her feet bilaterally. NEURO: No gross neuro deficits. Discharge Data Allergies Allergy/AdvReac Type Severity Reaction Status Date / Time clonazepam Allergy Hallucinati Unverified 07/28/18 00:14 ng amitriptyline AdvReac Hives Unverified 07/28/18 00:14 carbamazepine [From Tegretol] AdvReac Hives Unverified 07/28/18 00:14 cephalexin [From Keflex] AdvReac Hives Unverified 07/28/18 00:14 clorazepate dipotassium AdvReac Hives Unverified 07/28/18 00:14 divalproex sodium AdvReac Hives Unverified 07/28/18 00:14 [From Depakote] lamotrigine [From Lamictal] AdvReac Hives Unverified 07/28/18 00:14 levetiracetam [From Keppra] AdvReac Hives Unverified 07/28/18 00:14 phenytoin [From Dilantin] AdvReac Hives Unverified 07/28/18 00:14 sertraline [From Zoloft] AdvReac Hives Unverified 07/28/18 00:14 topiramate [From Topamax] AdvReac Hives Unverified 07/28/18 00:14 trazodone AdvReac Hives Unverified 07/28/18 00:14 Hospital Course (1) Seizure disorder: 22-year-old female was admitted for observation on 01 August 2018 after being technically discharged from the psychiatric inpatient service on the same date for interim monitoring of her suicidal ideations, major depression with psychotic features, and seizure disorder. Please review today's progress note by her primary team as well as the psychiatry discharge summary on [id number] for recent care. Seizure disorder: Per today's progress notes, patient has a history of frequent 2-3-minute long episodes. It is unclear if these are true seizures versus pseudoseizures. She remains on gabapentin, lacosamide, and phenobarbital. - She remains on track for transfer to [place] tomorrow for tertiary evaluation. - Will keep her on PCU telemetry for monitoring given her frequent episodes. - Will keep her on seizure precautions. - Wrote an as needed order for Ativan if she has a seizure lasting over five minutes. Nursing should then call her treatment team or overnight warehouse stocker if it appears she has a seizure > five minutes or with other related concerns. Suicidal ideation: Apparently she is no longer actively suicidal. - Will keep her on a one-to-one sitter due to history of SI. Major depression with psychotic features: Patient says she continues to hear voices but says that they do not direct self-harm. She remains on her quetiapine. Code status: Full code Diet: Regular DVT prophy: SCDs. PT/OT: Deferred. Disbo: Admitted to PCU telemetry for observation. Planed transfer to [place] tomorrow. (2) Suicidal ideation: (3) Major depressive disorder, single episode, severe w psychotic behavior: Total Time Total Time Spent Total Time Spent (In Minutes): 30 minutes Discharge Plan Discharge Items Patient Disposition: Transfer Acute Care Hospital Reason For Visit: SEIZURES Discharge Diagnosis: Seizures Discharge Goals: Diagnostic testing Activity: Per 'Additional Instructions' section Non-emergency contact: Primary Care Provider and Psychiatrist Call non-emergency contact if: you have any medication questions and your symptoms worsen Follow-up/Referrals: PCPCHRISTOS [Primary Care Provider] - Diet: Regular Addtl Provider Instructions: Ms. Hendricks, you are being transferred to [facility] for further neurological workup of your seizure like spells. Prescriptions: Continue phenobarbital 32.4 mg tablet 64.8 mg PO BID RF: 0 gabapentin 100 mg Capsule 200 mg PO BID Qty: 1 RF: 0 lacosamide [Vimpat] 50 mg Tablet 100 mg PO BID Qty: 1 RF: 0 quetiapine 300 mg Tablet 300 mg PO HS Qty: 1 RF: 0 Stand-Alone Forms: [facility] Discharge Orders: Discharge Order (Routine); Ordered 08/02/18 Ordered By: Tito Davila Admission Data Admit Date/Time: 08/01/18 20:00 Attending Provider: Colt Velasquez Admit Provider: Trino Godwin Primary Care Provider: CHRISTOS KEY Service: Telemetry Other Interventions: Discharge Summary Assessment (RN) Last Done: 08/02/18 08:16 DC Date/Time DO NOT enter until pt leaves facility: 08/02/18 11:12 Supervising Physician Co-Signing Physician Notes Attending attestation Pt seen and examined in concert with Dr. Davila. In agreement with the documented findings as noted in the resident documentation with any exceptions or additions as noted here. Pt resting in bed reporting multiple episodes of seizure-like activity overnight with response to ativan x 2. Presently still c/o myalgias diffusely, again common to episodes in previous. Reports no tongue pain, pharyngitis, rashes, sensation changes, speech difficulty, n/v/d/c, abd pain. On examination, S1/S2 nl RRR no MCG. CTAB. Abd NT/ND BS+ve. Diffuse muscular TTP is reported on exam. CNII-XII grossly intact. Seizure disorder - transitioned to [facility] for further evaluation, continue regimen on discharge. Transfer w/ [facility] for ativan protocol Myalgias - single dose of morphine 2mg prior to transport for patient comfort Major depressive disorder with psychosis and suicidal ideation - discharge with quetiapine as noted. Outpatient f/u w/ established psychiatry.
[2018-08-02] MEDS: LACOSAMIDE 50 MG TABLET PO SCH (10:18)
[2018-08-02] MEDS: PHENobarbital 32.4 MG TAB PO SCH (10:18)
[2018-08-02] MEDS: GABAPENTIN 100 MG CAP PO SCH (10:18)
[2018-08-02] MEDS ORDERED: MoRPHine SULFATE 2 MG/ML CARP IV STA (10:42)
[2018-08-02] MEDS ORDERED: MoRPHine SULFATE 2 MG/ML CARP ONE (10:43)
== END 2018-08-02 11:12 | disposition short-term general hospital (02) ==
LOC: INTOOBSV 20:00 → 2S 20:00

== ENCOUNTER 2020-10-26 16:20 | Inpatient (IN) ==
[2020-10-26 17:22] LABS: Appearance Urine Clear (Clear); Bacteria Urine Automated Negative (Negative); Bilirubin Urine Negative (Negative); Blood Urine Negative (Negative); Cast Urine Automated 0 /lpf (0-5); Color Urine Yellow; Glucose Urine UA Negative (Negative); Ketones Urine Negative (Negative); Leukocyte Esterase Urine Negative (Negative); Nitrite Urine Negative (Negative); RBC Urine Automated 0-4 /hpf (0-4); Specific Gravity Urine 1.012 (1.000-1.030); Urobilinogen Urine Negative (Negative)
[2020-10-26 17:36] LABS: Protein Urine Trace (Negative)
[2020-10-26 17:39] LABS: Amphetamines+Metham, Urine Neg (Neg); Barbiturates, Urine Neg (Neg); Benzodiazepine, Urine Neg (Neg); Cocaine, Urine Neg (Neg); MDMA (Ecstacy), Urine Neg (Neg); Methadone, Urine Neg (Neg); Opiate, Urine Neg (Neg); Phencyclidine, Urine Neg (Neg)
[2020-10-26] MEDS ORDERED: LORazepam 1 MG TAB PO STA (18:26)
--- NOTE | 2020-10-26 18:30 | Emergency Department Note ---
Impression & Plan Major depressive disorder, single episode, severe w psychotic behavior, Psychosis ED Provider Note NAME: ROYA HDEZ AGE: 24 SEX: F : 1995 ARRIVES VIA: Walk-In INFORMANT: Patient, ED PROVIDER(S): Stephen Gallagher DO CHIEF COMPLAINT: Mental health evaluation HPI: The patient is a 24-year-old female who presented to the emergency department for an evaluation of mental health problems. The patient does have a history of mood disorder but is also had psychotic behavior in the past. Her medications for her psychotic behavior was stopped 3 weeks ago. She states that since that time she started to notice worsening and worsening symptoms including difficulty sleeping and anxiety. She started having hallucinations again. She has a description that she handed us to read of her hallucinations. She sees her father. She hears loud screaming voices. She states that this is been getting worse over the course the last 24 hours. She states she was last admitted to [facility] for similar complaints. The patient does not feel safe at this time. She saw her therapist most recently last week. She states that otherwise she has been compliant with all of her outpatient medications. ROS: See above HPI for pertinent positives & negatives. A total of 10 systems reviewed and were otherwise negative. PAST MEDICAL HISTORY: See Below PAST SURGICAL HISTORY: See Below FAMILY HISTORY: See Below SOCIAL HISTORY: See Below HOME MEDICATIONS: See Below ALLERGIES: See Below VITALS: See Below PHYSICAL EXAMINATION: GENERAL: The patient is awake and alert. The patient is very anxious appearing. EYES: The conjunctivae are clear. The pupils are round and reactive. EARS, NOSE, MOUTH AND THROAT: The nose is without any evidence of any deformity. NECK: The neck is nontender and supple. RESPIRATORY: Normal respiratory effort is noted there is no evidence of wheezing rhonchi or rales CARDIOVASCULAR: Regular rate and rhythm noted there no murmurs rubs or gallops normal S1 normal S2. GASTROINTESTINAL: The abdomen is soft. Abdomen is nontender. MUSCULOSKELETAL/EXTREMITIES: There is no evidence of gross deformity full range of motion is noted in the hips and shoulders. SKIN: There is no obvious evidence of any rash. There are no petechiae, pallor or cyanosis noted. NEUROLOGIC: Patient is awake alert and oriented x3 strength is symmetric patellar reflexes are 2+ bilaterally PSYCH: The patient makes good eye contact for most of the evaluation. She does appear somewhat anxious. She is currently denying any suicidal homicidal ideation. She is denying any drug or alcohol use. She does have a medical marijuana card MEDICAL DECISION MAKING: The patient is a 24-year-old female who presented to the emergency department for an evaluation of mental health issues. The patient has a history of psychosis in the past. Her medications were recently changed. The patient has not been doing well especially over the last week. She has had insomnia. She was treated with Ativan in the emergency department. She was medically cleared in the emergency department. She was evaluated by the mental health binder caser. At this time bed search is underway. The patient was signed out to Dr Emery at change of shift. Please see her not for continuation of care and further disposition. Triage Nursing notes reviewed. Prior medical records reviewed Vital Signs: reviewed and remarkable for no significant abnormalities Differential diagnosis: Mood disorder, infection, hypoglycemia, electrolyte abnormalities, cardiac sources, intracerebral event, toxicologic, trauma, neurologic, as well as other pathologies. ER treatment provided: See below Diagnostics interpreted by me: ECG: none Laboratory studies: As stated above and show below. Imaging studies: See below Consultation(s): none Past Med/Surg History Medical History Epilepsy Lyme disease Major depression with psychotic features Seizure disorder Family History Other No pertinent family history Social History Smoking Status: Never smoker Hx Alcohol Use: No Hx Substance Use: No Preferred Language: Kuwaiti Communication Ability: Effective Visual Impairment: Partially Limited Hearing Ability: Normal Bike Assembler Required: No Beliefs That Will Affect Care: None Current Living Situation: Family Feels Safe at Home: Yes Assistive Devices: Oxygen - Continuous Allergies Allergies Allergy/AdvReac Type Severity Reaction Status Date / Time clonazepam Allergy Hallucinati Unverified 07/28/18 00:14 ng amitriptyline AdvReac Hives Unverified 07/28/18 00:14 carbamazepine [From Tegretol] AdvReac Hives Unverified 07/28/18 00:14 cephalexin [From Keflex] AdvReac Hives Unverified 07/28/18 00:14 clorazepate dipotassium AdvReac Hives Unverified 07/28/18 00:14 divalproex sodium AdvReac Hives Unverified 07/28/18 00:14 [From Depakote] lamotrigine [From Lamictal] AdvReac Hives Unverified 07/28/18 00:14 levetiracetam [From Keppra] AdvReac Hives Unverified 07/28/18 00:14 phenytoin [From Dilantin] AdvReac Hives Unverified 07/28/18 00:14 sertraline [From Zoloft] AdvReac Hives Unverified 07/28/18 00:14 topiramate [From Topamax] AdvReac Hives Unverified 07/28/18 00:14 trazodone AdvReac Hives Unverified 07/28/18 00:14 Home Meds Home Medications Medication Instructions Recorded Confirmed sulfamethoxazole-trimethoprim 1 tab PO BID 10/26/20 10/26/20 [Bactrim DS] Results & Data (ED) Vital Signs Vital Signs - 24 hr 10/26/20 16:42 10/26/20 18:52 10/26/20 23:03 Temperature 36.5 C Temperature Source Temporal Artery Scan Pulse Rate 109 H Pulse Rate [Finger] 70 77 Pulse Rhythm Regular Pulse Strength Normal Respiratory Rate 18 18 20 Respiratory Effort / Characteristics Non-Labored Spontaneous Non-Labored Spontaneous Respiratory Depth Normal Normal Respiratory Pattern Regular Blood Pressure 134/73 Blood Pressure [Right Arm] 115/70 109/67 Blood Pressure Mean 93 Blood Pressure Mean [Right Arm] 85 81 Blood Pressure Position Sitting Pulse Oximetry 99 97 98 Oxygen Delivery Method Room Air Room Air Room Air Sepsis Recent Fever Within 48 Hours No Sepsis New/Unexplained Change in Mental Status N/A Sepsis Action Taken by Nursing No Action Required 10/27/20 02:12 Temperature Temperature Source Pulse Rate Pulse Rate [Finger] 66 Pulse Rhythm Pulse Strength Respiratory Rate 20 Respiratory Effort / Characteristics Non-Labored Spontaneous Respiratory Depth Normal Respiratory Pattern Blood Pressure Blood Pressure [Right Arm] 113/78 Blood Pressure Mean Blood Pressure Mean [Right Arm] 89 Blood Pressure Position Pulse Oximetry 99 Oxygen Delivery Method Room Air Sepsis Recent Fever Within 48 Hours Sepsis New/Unexplained Change in Mental Status Sepsis Action Taken by Assisted Medications Current Medication List: was personally reviewed by me Laboratory Data Attestation: I reviewed the patient's lab results. Result diagrams: 10/26/20 18:41 10/26/20 18:41 Lab Results 10/26/20 10/26/20 10/26/20 Range/Units 16:52 16:52 16:52 WBC (4.8-10.8) K/uL RBC (4.2-5.4) M/uL Hgb (12.0-16.0) g/dL Hct (37-47) % MCV (80-100) fL MCH (25-34) pg MCHC (32-36) g/dL RDW Std Deviation (36.4-46.3) fL RDW Coeff of Alfie (11.5-14.5) % Plt Count (130-400) K/uL MPV (7.4-10.4) fL Immature Gran % (Auto) % Neut % (Auto) % Lymph % (Auto) % Mayes % (Auto) % Eos % (Auto) % Baso % (Auto) % Neut # (Auto) (1.4-6.5) K/uL Lymph # (Auto) (1.2-3.4) K/uL Mayes # (Auto) (0.11-0.59) K/uL Eos # (Auto) (0-0.5) K/uL Baso # (Auto) (0-0.2) K/uL Immature Gran # (Auto) (0.00-0.02) K/uL Sodium (136-145) mmol/L Potassium (3.5-5.1) mmol/L Chloride (98-107) mmol/L Carbon Dioxide (21-32) mmol/L Anion Gap (3-11) BUN (7-18) mg/dl Creatinine (0.6-1.2) mg/dl Est Cr Clr Drug Dosing ml/min Est GFR ( Amer) Est GFR (Non-Af Amer) BUN/Creatinine Ratio (10-20) Glucose (70-99) mg/dl Calcium (8.5-10.1) mg/dl Total Bilirubin (0.2-1) mg/dl AST (15-37) U/L ALT (12-78) U/L Alkaline Phosphatase (45-117) U/L Total Protein (6.4-8.2) gm/dl Albumin (3.4-5.0) gm/dl Globulin (2.5-4.0) gm/dl Albumin/Globulin Ratio (0.9-2) TSH (0.300-4.500) uIu/ml Urine Color Yellow Urine Appearance Clear (Clear) Urine pH 8.0 H (4.5-7.5) Ur Specific Lindstrom 1.012 (1.000-1.030) Urine Protein Trace H (Negative) Urine Glucose (UA) Negative (Negative) Urine Ketones Negative (Negative) Urine Blood Negative (Negative) Urine Nitrite Negative (Negative) Urine Bilirubin Negative (Negative) Urine Urobilinogen Negative (Negative) Ur Leukocyte Esterase Negative (Negative) Urine WBC (Auto) 1-5 (0-5) /hpf Urine RBC (Auto) 0-4 (0-4) /hpf U Hyaline Cast (Auto) 0 (0-5) /lpf U Epithel Cells (Auto) 10-20 H (0-5) /lpf Urine Bacteria (Auto) Negative (Negative) POC Ur Test NEG (NEG) Salicylates (2.8-20) mg/dl Urine Opiates Screen Neg (Neg) Ur Methadone, Qual Neg (Neg) Acetaminophen (10-30) ug/ml Urine Barbiturates Neg (Neg) Ur Phencyclidine (PCP) Neg (Neg) U Amphetamin/Meth Scrn Neg (Neg) MDMA (Ecstasy) Screen Neg (Neg) U Benzodiazepines Scrn Neg (Neg) Ur Cocaine Metabolite Neg (Neg) U Marijuana (THC) Screen Pos H (Neg) Ethyl Alcohol mg/dL (0-3) mg/dl COVID-19 Eval Order SARS-CoV-2 (PCR) (Negative) Influenza Type A (PCR) (Neg) Influenza Type B (PCR) (Neg) RSV (RT-PCR) (Neg) 10/26/20 10/26/20 10/26/20 Range/Units 18:41 18:41 18:41 WBC 6.37 (4.8-10.8) K/uL RBC 4.46 (4.2-5.4) M/uL Hgb 13.0 (12.0-16.0) g/dL Hct 38.4 (37-47) % MCV 86.1 (80-100) fL MCH 29.1 (25-34) pg MCHC 33.9 (32-36) g/dL RDW Std Deviation 41.1 (36.4-46.3) fL RDW Coeff of Alfie 12.9 (11.5-14.5) % Plt Count 265 (130-400) K/uL MPV 9.2 (7.4-10.4) fL Immature Gran % (Auto) 0.2 % Neut % (Auto) 69.5 % Lymph % (Auto) 19.5 % Mayes % (Auto) 10.4 % Eos % (Auto) 0.2 % Baso % (Auto) 0.2 % Neut # (Auto) 4.44 (1.4-6.5) K/uL Lymph # (Auto) 1.24 (1.2-3.4) K/uL Mayes # (Auto) 0.66 H (0.11-0.59) K/uL Eos # (Auto) 0.01 (0-0.5) K/uL Baso # (Auto) 0.01 (0-0.2) K/uL Immature Gran # (Auto) 0.01 (0.00-0.02) K/uL Sodium 137 (136-145) mmol/L Potassium 3.9 (3.5-5.1) mmol/L Chloride 107 (98-107) mmol/L Carbon Dioxide 25 (21-32) mmol/L Anion Gap 5.0 (3-11) BUN 9 (7-18) mg/dl Creatinine 0.81 (0.6-1.2) mg/dl Est Cr Clr Drug Dosing 82.2 ml/min Est GFR ( Amer) 119.5 Est GFR (Non-Af Amer) 103.1 BUN/Creatinine Ratio 10.8 (10-20) Glucose 90 (70-99) mg/dl Calcium 9.6 (8.5-10.1) mg/dl Total Bilirubin 0.4 (0.2-1) mg/dl AST 15 (15-37) U/L ALT 22 (12-78) U/L Alkaline Phosphatase 53 (45-117) U/L Total Protein 7.7 (6.4-8.2) gm/dl Albumin 4.7 (3.4-5.0) gm/dl Globulin 3.0 (2.5-4.0) gm/dl Albumin/Globulin Ratio 1.6 (0.9-2) TSH 0.977 (0.300-4.500) uIu/ml Urine Color Urine Appearance (Clear) Urine pH (4.5-7.5) Ur Specific Lindstrom (1.000-1.030) Urine Protein (Negative) Urine Glucose (UA) (Negative) Urine Ketones (Negative) Urine Blood (Negative) Urine Nitrite (Negative) Urine Bilirubin (Negative) Urine Urobilinogen (Negative) Ur Leukocyte Esterase (Negative) Urine WBC (Auto) (0-5) /hpf Urine RBC (Auto) (0-4) /hpf U Hyaline Cast (Auto) (0-5) /lpf U Epithel Cells (Auto) (0-5) /lpf Urine Bacteria (Auto) (Negative) POC Ur Test (NEG) Salicylates 2.4 L (2.8-20) mg/dl Urine Opiates Screen (Neg) Ur Methadone, Qual (Neg) Acetaminophen < 2 L (10-30) ug/ml Urine Barbiturates (Neg) Ur Phencyclidine (PCP) (Neg) U Amphetamin/Meth Scrn (Neg) MDMA (Ecstasy) Screen (Neg) U Benzodiazepines Scrn (Neg) Ur Cocaine Metabolite (Neg) U Marijuana (THC) Screen (Neg) Ethyl Alcohol mg/dL (0-3) mg/dl COVID-19 Eval Order SARS-CoV-2 (PCR) (Negative) Influenza Type A (PCR) (Neg) Influenza Type B (PCR) (Neg) RSV (RT-PCR) (Neg) 10/26/20 10/26/20 10/26/20 Range/Units 18:41 19:45 19:45 WBC (4.8-10.8) K/uL RBC (4.2-5.4) M/uL Hgb (12.0-16.0) g/dL Hct (37-47) % MCV (80-100) fL MCH (25-34) pg MCHC (32-36) g/dL RDW Std Deviation (36.4-46.3) fL RDW Coeff of Alfie (11.5-14.5) % Plt Count (130-400) K/uL MPV (7.4-10.4) fL Immature Gran % (Auto) % Neut % (Auto) % Lymph % (Auto) % Mayes % (Auto) % Eos % (Auto) % Baso % (Auto) % Neut # (Auto) (1.4-6.5) K/uL Lymph # (Auto) (1.2-3.4) K/uL Mayes # (Auto) (0.11-0.59) K/uL Eos # (Auto) (0-0.5) K/uL Baso # (Auto) (0-0.2) K/uL Immature Gran # (Auto) (0.00-0.02) K/uL Sodium (136-145) mmol/L Potassium (3.5-5.1) mmol/L Chloride (98-107) mmol/L Carbon Dioxide (21-32) mmol/L Anion Gap (3-11) BUN (7-18) mg/dl Creatinine (0.6-1.2) mg/dl Est Cr Clr Drug Dosing ml/min Est GFR ( Amer) Est GFR (Non-Af Amer) BUN/Creatinine Ratio (10-20) Glucose (70-99) mg/dl Calcium (8.5-10.1) mg/dl Total Bilirubin (0.2-1) mg/dl AST (15-37) U/L ALT (12-78) U/L Alkaline Phosphatase (45-117) U/L Total Protein (6.4-8.2) gm/dl Albumin (3.4-5.0) gm/dl Globulin (2.5-4.0) gm/dl Albumin/Globulin Ratio (0.9-2) TSH (0.300-4.500) uIu/ml Urine Color Urine Appearance (Clear) Urine pH (4.5-7.5) Ur Specific Lindstrom (1.000-1.030) Urine Protein (Negative) Urine Glucose (UA) (Negative) Urine Ketones (Negative) Urine Blood (Negative) Urine Nitrite (Negative) Urine Bilirubin (Negative) Urine Urobilinogen (Negative) Ur Leukocyte Esterase (Negative) Urine WBC (Auto) (0-5) /hpf Urine RBC (Auto) (0-4) /hpf U Hyaline Cast (Auto) (0-5) /lpf U Epithel Cells (Auto) (0-5) /lpf Urine Bacteria (Auto) (Negative) POC Ur Test (NEG) Salicylates (2.8-20) mg/dl Urine Opiates Screen (Neg) Ur Methadone, Qual (Neg) Acetaminophen (10-30) ug/ml Urine Barbiturates (Neg) Ur Phencyclidine (PCP) (Neg) U Amphetamin/Meth Scrn (Neg) MDMA (Ecstasy) Screen (Neg) U Benzodiazepines Scrn (Neg) Ur Cocaine Metabolite (Neg) U Marijuana (THC) Screen (Neg) Ethyl Alcohol mg/dL < 3.0 (0-3) mg/dl COVID-19 Eval Order CovFluRsv at [facility] SARS-CoV-2 (PCR) NEGATIVE (Negative) Influenza Type A (PCR) Negative (Neg) Influenza Type B (PCR) Negative (Neg) RSV (RT-PCR) Negative (Neg) Administered Medications Discontinued Medications Lorazepam (Lorazepam 1 Mg Tab) 1 mg PO NOW STA Stop: 10/26/20 18:27 Last Admin: 10/26/20 18:35 Dose: 1 mg Documented by: [id number] Lorazepam (Lorazepam 1 Mg Tab) 1 mg PO NOW STA Stop: 10/27/20 01:57 Last Admin: 10/27/20 02:10 Dose: 1 mg Documented by: [id number] Discharge Plan Visit Data Chief Complaint: Mental Health Evaluation Stated Complaint: MENTAL HEALTH EVAL ED Provider: Stephen Gallagher Discharge Problem: Major depressive disorder, single episode, severe w psychotic behavior, Psychosis Patient Disposition: Still a Patient Condition: Good Forms Stand Alone Forms: [facility], Suicide Prevention Resources Prescriptions Prescriptions: No Action sulfamethoxazole-trimethoprim [Bactrim DS] 800-160 mg tablet 1 tab PO BID RF: 0 Referrals Referrals: Ephraim Maravilla MD [Primary Care Provider] - Discharge Problem: Psychosis Qualifiers: Psychosis type: unspecified psychosis type Qualified Code(s): F29 - Unspecified psychosis not due to a substance or known physiological condition
[2020-10-26 18:55] LABS: Basophils # (auto) 0.01 K/uL (0-0.2); Basophils % (auto) 0.2 %; Eosinophils # (auto) 0.01 K/uL (0-0.5); Eosinophils % (auto) 0.2 %; Hematocrit (blood only) 38.4 % (37-47); Immature Granulocytes # (auto) 0.01 K/uL (0.00-0.02); Immature Granulocytes % (auto) 0.2 %; Lymphocytes # (auto) 1.24 K/uL (1.2-3.4); Lymphocytes % (auto) 19.5 %; Mean Corpuscular Hemoglobin 29.1 pg (25-34); Mean Corpuscular Hgb Conc 33.9 g/dL (32-36); Mean Corpuscular Volume 86.1 fL (80-100); Mean Platelet Volume 9.2 fL (7.4-10.4); Monocytes # (auto) 0.66 K/uL (0.11-0.59); Monocytes % (auto) 10.4 %; Neutrophils # (auto) 4.44 K/uL (1.4-6.5); Neutrophils % (auto) 69.5 %; Platelet Count 265 K/uL (130-400); RDW Coefficient of Variation 12.9 % (11.5-14.5); RDW Standard Deviation 41.1 fL (36.4-46.3); Red Blood Count 4.46 M/uL (4.2-5.4); White Blood Count 6.37 K/uL (4.8-10.8)
[2020-10-26 19:12] LABS: Albumin Level 4.7 gm/dl (3.4-5.0); BUN Creatinine Ratio 10.8 (10-20); Calcium 9.6 mg/dl (8.5-10.1); Creatinine Clr Calc Pharmacy 82.2 ml/min; Est GFR (African American) 119.5; Est GFR (Non-African American) 103.1; Potassium 3.9 mmol/L (3.5-5.1)
[2020-10-26 19:22] LABS: Albumin Globulin Ratio 1.6 (0.9-2); Bilirubin,Total 0.4 mg/dl (0.2-1); Thyroid Stimulating Hormone 0.977 uIu/ml (0.300-4.500); Total Protein 7.7 gm/dl (6.4-8.2)
[2020-10-26 19:33] LABS: Acetaminophen < 2 ug/ml (10-30); Salicylate 2.4 mg/dl (2.8-20)
[2020-10-26 20:44] LABS: Influenza A virus by PCR Negative (Neg); Influenza B virus by PCR Negative (Neg); RSV by PCR Negative (Neg); SARS CoV2 RNA(COVID-19) InHosp NEGATIVE (Negative)
[2020-10-27] MEDS ORDERED: LORazepam 1 MG TAB PO STA (01:56)
[2020-10-27] MEDS ORDERED: BISMUTH SUBSALICYLATE LIQD 236 ML PO PRN (03:02)
[2020-10-27] MEDS ORDERED: hydrOXYzine HCl 25 MG TAB PO PRN ×2 (03:02)
[2020-10-27] MEDS ORDERED: MAGNESIUM HYDROXIDE SUSP 30 ML UDC PO PRN (03:02)
[2020-10-27] MEDS ORDERED: ACETAMINOPHEN 325 MG TAB PO PRN (03:02)
[2020-10-27] MEDS ORDERED: SODIUM CHLORIDE 0.65% NA SOLN 45 ML (OCEAN) PRN (03:02)
[2020-10-27] MEDS ORDERED: ALUMINUM/MAGNESIUM SUSP 30 ML UDC PO PRN (03:02)
--- NOTE | 2020-10-27 03:08 | Emergency Department Note ---
ED Visit Note This case was signed out to me at change of shift awaiting bed placement. The patient has been accepted to [facility]. . : Psychosis Qualifiers: Psychosis type: unspecified psychosis type Qualified Code(s): F29 - Unspecified psychosis not due to a substance or known physiological condition
[2020-10-27] MEDS ORDERED: ALBUTEROL HFA 8 GM INHALER INH PRN (04:17)
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
[2020-10-27] MEDS: LORazepam 1 MG TAB PO SCH ×2 (08:49→20:25)
[2020-10-27] MEDS: SULFAMETHOXAZOLE/TRIMETHOPRIM DS 800/160MG TAB PO SCH ×2 (08:49→20:23)
[2020-10-27] MEDS ORDERED: haloperidoL 0.5 MG TAB PO PRN (10:49)
[2020-10-27] MEDS ORDERED: haloperidoL 5 MG TAB PO PRN (11:01)
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
[2020-10-27] MEDS: haloperidoL 5 MG TAB PO SCH ×2 (12:13→20:23)
[2020-10-27] MEDS: GABAPENTIN 100 MG CAP PO SCH ×2 (12:14→20:22)
--- NOTE | 2020-10-27 13:20 | Communication Note ---
Date of Service: October 27, 2020 Records from [facility] Faxed and Reviewed: Initial Intake Assessment - Pt was reportedly self-referred for "experiencing hallucinations and anxiety". Pt reportedly was seeking alternative outpatient services due to feeling feeling her previous provider was not listening to her concerns. Reported history of PTSD, Anxiety per neuropsychological evaluation with Dr. Cheng - auditory, visual, and tactile hallucinations. Father reportedly committed suicide and admitted to seeing and hearing the voice of her father. Abilify and Latuda reportedly ineffective for symptoms. Hospitalized x4: [place] 2018; [place] 2019; [facility] 2019; [place] 2020. Diagnoses: post-traumatic stress disorder; unspecified schizophrenia spectrum and other psychotic disorder
[2020-10-28] MEDS: LORazepam 1 MG TAB PO SCH ×2 (00:43→08:46)
[2020-10-28] MEDS: haloperidoL 5 MG TAB PO SCH (08:45)
[2020-10-28] MEDS: SULFAMETHOXAZOLE/TRIMETHOPRIM DS 800/160MG TAB PO SCH ×2 (08:46→21:18)
[2020-10-28] MEDS: GABAPENTIN 100 MG CAP PO SCH ×2 (08:46→21:18)
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
[2020-10-28] MEDS ORDERED: LORazepam 1 MG TAB PO ONE ×2 (10:28→22:00)
--- NOTE | 2020-10-28 11:25 | Communication Note ---
Date of Service: October 28, 2020 Spoke with therapist Romelia who reported patient has a pattern of self sabotaging as when she starts to improve, she sabotages. She is not forthcoming with information and frequently changes providers (neurology, psychiatry, therapy) and does not provide all of her history. There is intergenerational trauma and disability/welfare. She has not been able to do trauma work and so will not continue working with her until she is able to commit to having only one counselor, allowing communication with other clinicians, not using marijuana, and compliance with psychotropics. Patient's case management coordinator is also aware of this, and the outpatient team may do a multidisciplinary treatment meeting. She tends to socialize with patients she meets on the inpatient unit.
[2020-10-28] MEDS ORDERED: haloperidoL 0.5 MG TAB PO ONE (21:00)
[2020-10-28] MEDS ORDERED: haloperidoL 5 MG TAB PO ONE (21:15)
[2020-10-29 06:31] LABS: Marijuana Quant, GCMS Urine 563 ng/mL (<5)
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
[2020-10-29] MEDS: GABAPENTIN 100 MG CAP PO SCH ×2 (09:11→21:14)
[2020-10-29 09:37] LABS: Glucose Fasting 94 mg/dl (70-99)
[2020-10-29 09:43] LABS: Chol HDL Ratio 2; Cholesterol 229 mg/dl (0-200); HDL Cholesterol 97 mg/dl; LDL Cholesterol Calculated 122 mg/dl; Triglycerides 50 mg/dl (0-150); VLDL Cholesterol 10 mg/dl
--- NOTE | 2020-10-29 13:32 | Communication Note ---
Date of Service: October 29, 2020 Records from Psychological Evaluation received and reviewed: Evaluated by: Dr. lEizabet Cheng Psy.D [employer] [facility] Pt was evaluated for "diagnostic clarity" to allow for treatment recommendations. Pt reported diagnosis of paranoid schizophrenia. Concern for this diagnosis was reportedly raised after the patient "went a couple of days without sleeping and started hallucinating" about 3 years ago. Reportedly symptoms continued for a few months. Auditory hallucinations were commanding in nature or tell her her food is poisoned. Pt reported history of Lyme disease, believed she was exposed to it during her mother's . 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
[2020-10-29] MEDS ORDERED: haloperidoL 5 MG TAB PO SCH (22:00)
[2020-10-30] MEDS: GABAPENTIN 100 MG CAP PO SCH (09:12)
[2020-10-30] MEDS: SULFAMETHOXAZOLE/TRIMETHOPRIM DS 800/160MG TAB PO SCH (09:12)
--- NOTE | 2020-10-30 09:25 | Discharge Summary ---
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 Per [facility] policy she cannot use marijuana on the unit. On admission she was started on lorazepam 1mg q 8hrs for seizure prophylaxis, and will consult neurology for recommendations for seizure prophylaxis while hospitalized. -Appreciate Dr. Falcon's recommen dations, will start gabapentin 200 mg twice daily. -Coordinate with outpatient neurologist at [facility] in [place]. 10/28 - [place] [facility] [place] above, diagnosis is PNES (apparently also had video EEG in [place] with the same result). D/w Dr. Falcon and patient, will stop Ativan and Dr. Falcon recommended continuing the low dose gabapentin as it could help with anxiety and reduce PNES. She states she only plans to take it while here, and then switch back to marijuana when she leaves. Called [facility] to clarify who her new neurologist is, they state she has seen a locums there, and does not have a f/u appt scheduled. 10/29 - Pt remains consistent in that she does not plan to continue gabapentin when discharged, planning to return to marijuana use - Reviewed that lorazepam was discontinued but as her seizures were diagnosed as PNES and due to contraindication for benzodiazepine use in the setting of routine marijuana use. 10/30 -Today, the patient indicates that she has considered it further and is willing to continue gabapentin when discharged. However, her commitment to not use marijuana and to continue gabapentin is unconvincing. (5) Lyme disease: Continue home dose of Bactrim 1 tab po bid on Mon, Mon, Mon Mental Health & Subst Abuse Tx Psychiatrist Name of Psychiatrist: Neil Gomez Psychiatrist's Date of Appointment with Psychiatrist: 11/13/20 Time of Appointment with Psychiatrist: 9:10 am Psychiatric Appointment Comment: a link will be sent to your phone to connect with the psychiatrist Therapist Name of Therapist: NOY Almonte Therapist's Date of Therapist Appointment: 11/05/20 Time of Therapist Appointment: 13:00 pm Therapy Appointment Comment: [address] [place] [address], [place] [address] Lead Refinery Supervisor Name of Lead Refinery Supervisor: Marleny Alvarado Phone Number for Lead Refinery Supervisor: [phone] Post Discharge Appointments Primary Care Physician Name Of Family Doctor: [address] - Dr. Ephraim Maravilla Primary Care Time of Appointment with PCP: Please follow up as needed Provider Appointment Comment: [address] [facility] [place], [address], [place] Neurologist Name of Neurologist: [facility] - Neurology Department Neurologist's Time of Appointment with Neurologist: Please follow up as needed Neurology Appointment Comment: [phone], [place] [address] Smoking Cessation Counseling Tobacco Cessation Medication Prescribed at Discharge: Not Applicable/Non-Smoker Contact Information [facility]charge [facility] [place] [address] Discharge Plan Discharge Items Patient Disposition: Home - Self-Care Reason For Visit: PSYCHOSIS NOS Discharge Diagnosis: Unspecified Psychosis Condition on Discharge: Good Activity: Resume your previous activity Non-emergency contact: Primary Care Provider and Psychiatrist Call non-emergency contact if: you have any medication questions and your symptoms worsen Follow-up/Referrals: Ephraim Maravilla MD [Primary Care Provider] - Diet: Regular Addtl Attending Provider Instructions: SPECIAL CARE INSTRUCTIONS: 1. Follow through with your scheduled aftercare appointments. If unable to keep an appointment, please call to reschedule. 2. Take your medication only as prescribed. Medication should not be changed or stopped without the approval of your doctor. In the event of worsening symptoms or concerns about side effects, contact your doctor immediately. 3. Utilize new healthy coping skills, anger management skills, and stress management skills learned during your hospitalization. Journal feelings and process them with a support person. Identify stressors or situations that may result in relapse, deterioration or inappropriate behaviors and develop a plan to deal with those issues. 4. If your coping skills are ineffective and you are in crisis, contact your outpatient providers for direction. If unable to reach your providers, please call the [facility] CRISIS LINE AT , go to the [facility] walk-in center at [address], [address], [place], or go to the closest Emergency Room. 5. Avoid alcohol and un-prescribed drugs. 6. You have been provided with the Mental Health Advance Directives Pamphlet for your review. AFTERCARE APPOINTMENTS: * Please call your insurance company prior to your scheduled appointment to confirm your aftercare providers are covered. Take your insurance information to your appointments. WHO TO CALL AND WHEN: Medical Emergencies: For questions or emergencies related to your hospital stay, please contact the Inpatient Behavioral Health Unit at [phone]. A occupational health and safety manager is on-call 20/02 for the Behavioral Health Unit for emergencies At any time you feel your situation is an emergency, you may also call 911 immediately. Pending Studies at Discharge: No Stand-Alone Forms: My [facility], Smoking Cessation Medications and DC Order Prescriptions: New haloperidol 5 mg Tablet 5 mg PO HS Qty: 30 RF: 0 gabapentin 100 mg Capsule 200 mg PO BID Qty: 120 RF: 0 Continued sulfamethoxazole-trimethoprim [Bactrim DS] 800-160 mg tablet 1 tab PO BID RF: 0 albuterol sulfate 90 mcg/actuation HFA aerosol inhaler 2 puff INHALATION DAILY PRN (Reason: asthma) RF: 0 Discontinued Medical Marijuana RF: 0 Discharge Orders: Discharge Order (Routine); Ordered 10/30/20 Ordered By: Alfredo Ferguson Admission Data Admit Date/Time: 10/27/20 03:02 Attending Provider: Carley Sheikh Admit Provider: Omayra Gill Primary Care Provider: Ephraim Maravilla Other Providers: [place] Falcon C[place] [address] D/C day mgmt > 30 min Patient Type Established History Expanded Problem Focused Exam Expanded Problem Focused Medical Decision Making Moderate Complexity Diagnoses PTSD (post-traumatic stress disorder) F43.10 Auditory hallucinations R44.0 Cannabis abuse F12.10 Psychogenic nonepileptic seizure F44.5 Lyme disease A69.20 Time Spent (min) 60
== END 2020-10-30 11:10 | disposition home or self-care (01) | DRG 885 ==
LOC: ED 16:20 → 3S 10-27 03:02

== ENCOUNTER 2020-11-17 21:43 | Inpatient (IN) ==
[2020-11-17 23:14] LABS: Appearance Urine Clear (Clear); Bilirubin Urine Negative (Negative); Blood Urine Negative (Negative); Color Urine Yellow; Glucose Urine UA Negative (Negative); Ketones Urine Negative (Negative); Leukocyte Esterase Urine Negative (Negative); Nitrite Urine Negative (Negative); Protein Urine Negative (Negative); Specific Gravity Urine 1.017 (1.000-1.030); Urobilinogen Urine Negative (Negative); pH Urine 5.5 (4.5-7.5)
[2020-11-17 23:23] LABS: Basophils # (auto) 0.01 K/uL (0-0.2); Basophils % (auto) 0.1 %; Eosinophils # (auto) 0.03 K/uL (0-0.5); Eosinophils % (auto) 0.4 %; Hematocrit (blood only) 37.8 % (37-47); Hemoglobin 13.4 g/dL (12.0-16.0); Immature Granulocytes # (auto) 0.01 K/uL (0.00-0.02); Immature Granulocytes % (auto) 0.1 %; Lymphocytes % (auto) 25.3 %; Mean Corpuscular Hemoglobin 30.1 pg (25-34); Mean Corpuscular Hgb Conc 35.4 g/dL (32-36); Mean Corpuscular Volume 84.9 fL (80-100); Mean Platelet Volume 9.3 fL (7.4-10.4); Monocytes # (auto) 0.77 K/uL (0.11-0.59); Monocytes % (auto) 11.5 %; Neutrophils # (auto) 4.19 K/uL (1.4-6.5); Neutrophils % (auto) 62.6 %; Platelet Count 303 K/uL (130-400); RDW Coefficient of Variation 12.5 % (11.5-14.5); RDW Standard Deviation 38.9 fL (36.4-46.3); Red Blood Count 4.45 M/uL (4.2-5.4); White Blood Count 6.71 K/uL (4.8-10.8)
[2020-11-17 23:27] LABS: Albumin Level 4.7 gm/dl (3.4-5.0); BUN Creatinine Ratio 14.9 (10-20); Calcium 9.3 mg/dl (8.5-10.1); Creatinine Clr Calc Pharmacy 66.1 ml/min; Est GFR (African American) 94.9; Est GFR (Non-African American) 81.9; Potassium 3.7 mmol/L (3.5-5.1)
[2020-11-17 23:30] LABS: Pregnancy Test, Serum Negative (Negative)
[2020-11-17 23:31] LABS: Acetaminophen < 2 ug/ml (10-30); Salicylate 1.7 mg/dl (2.8-20)
[2020-11-17 23:34] LABS: Amphetamines+Metham, Urine Neg (Neg); Barbiturates, Urine Neg (Neg); Benzodiazepine, Urine Neg (Neg); Cocaine, Urine Neg (Neg); MDMA (Ecstacy), Urine Neg (Neg); Methadone, Urine Neg (Neg); Opiate, Urine Neg (Neg); Phencyclidine, Urine Neg (Neg)
[2020-11-17 23:37] LABS: Albumin Globulin Ratio 1.4 (0.9-2); Bilirubin,Total 0.6 mg/dl (0.2-1); Globulin 3.3 gm/dl (2.5-4.0); Thyroid Stimulating Hormone 1.39 uIu/ml (0.300-4.500)
[2020-11-17] MEDS ORDERED: hydrOXYzine HCl 25 MG TAB PO STA (23:52)
--- NOTE | 2020-11-18 00:01 | Emergency Department Note ---
Impression & Plan Auditory hallucinations, Verbalizes suicidal thoughts ED Provider Note NAME: ROYA HDEZ AGE: 24 SEX: F ARRIVES VIA: Walk-In INFORMANT: Patient, ED PROVIDER(S): Crow Beach MD CHIEF COMPLAINT: Auditory command hallucinations. PLAN: Disposition: Voluntary psychiatric placement. MEDICAL DECISION MAKING: The patient is a 24-year-old woman with a past medical history of PTSD, cannabis abuse, history of auditory hallucinations, psychogenic nonepileptic seizures who presents emergency department with symptoms of return of command auditory travis ucinations telling to kill her self over the past week. The patient herself admits that she does not actively want to kill herself. She denies any depression or hopelessness. She denies any regular alcohol use or drug use other than marijuana. She denies any recent fevers, chills, cough, congestion, GI or symptoms. The patient reports she last saw her outpatient provider last week but this was before her hallucinations returned. She feels as though she will benefit from inpatient admission again as she was similarly admitted to at the beginning of the month. On arrival the patient is in no acute distress, afebrile stable vital signs. She appears mildly anxious but able to have coherent conversation and not particularly tremulous. Exam is otherwise unremarkable. WBC, H/H and platelets within normal limits. Chemistry without metabolic acidosis. Electrolytes and LFTs unremarkable. hCG negative. UA without evidence of infection. Drug screen positive for marijuana and otherwise unremarkable. COVID-19 RNA, NAAT test was negative. Patient was medically cleared. Bedsearch pending. Patient signed out to Dr. Cordero at change of shift. Triage Nursing notes reviewed and agree them. Prior medical records reviewed Vital Signs: reviewed and remarkable for no significant abnormalities Differential diagnosis: Mood disorder, infection, hypoglycemia, electrolyte abnormalities, cardiac sources, intracerebral event, toxicologic, trauma, neurologic, as well as other pathologies. ER treatment provided: See below. Laboratory studies: See below HPI: The patient is a 24-year-old woman with a past medical history of PTSD, cannabis abuse, history of auditory hallucinations, psychogenic nonepileptic seizures who presents emergency department with symptoms of return of command auditory hallucinations telling to kill her self over the past week. The patient herself admits that she does not actively want to kill herself. She denies any depression or hopelessness. She denies any regular alcohol use or drug use other than marijuana. She denies any recent fevers, chills, cough, congestion, GI or symptoms. The patient reports she last saw her outpatient provider last week but this was before her hallucinations returned. She feels as though she will benefit from inpatient admission again as she was similarly admitted to at the beginning of the month. ROS: See above HPI for pertinent positives & negatives. A total of 10 systems reviewed and were otherwise negative. PAST MEDICAL HISTORY:See Below PAST SURGICAL HISTORY:See Below FAMILY HISTORY:See Below SOCIAL HISTORY:See Below HOME MEDICATIONS:See Below ALLERGIES:See Below VITALS:See Below PHYSICAL EXAMINATION: GENERAL: Awake, alert, anxious but well-appearing, in no distress HENT: Normocephalic, atraumatic. Oropharynx unremarkable. EYES: Normal conjunctiva. Sclera non-icteric. NECK: Supple. No nuchal rigidity. FROM. No JVD. RESPIRATORY: Clear to auscultation. CARDIAC: Regular rate, normal rhythm. Extremities warm and well perfused. Pulses equal. ABDOMEN: Soft, non-distended. No tenderness to palpation. No rebound or guarding. No masses. RECTAL: Deferred. MUSCULOSKELETAL: Chest examination reveals no tenderness. The back is symmetrical on inspection without obvious abnormality. There is no CVA tenderness to palpation. No joint edema. LOWER EXTREMITIES: Calves are equal size bilaterally and non-tender. No edema. No discoloration. NEURO: Normal sensorium. No sensory or motor deficits noted. Intact finger to nose. DTRs wnl. No clonus SKIN: No rash or jaundice noted. PSYCH: Denies depression, hopelessness, SI or HI. Reports command hallucinations telling her to kill herself. Crow Beach MD Past Med/Surg History Medical History Cannabis abuse Generalized anxiety disorder Lyme disease Psychogenic nonepileptic seizure PTSD (post-traumatic stress disorder) Family History Other No pertinent family history Social History Smoking Status: Never smoker Hx Alcohol Use: No Hx Substance Use: No Preferred Language: Cypriot Communication Ability: Effective Visual Impairment: Partially Limited Hearing Ability: Normal Ship/Rec/Doc Control Required: No Beliefs That Will Affect Care: None Current Living Situation: Family Feels Safe at Home: Yes Assistive Devices: Oxygen - Continuous Allergies Allergies Allergy/AdvReac Type Severity Reaction Status Date / Time clonazepam Allergy Hallucinati Unverified 07/28/18 00:14 ng amitriptyline AdvReac Hives Unverified 07/28/18 00:14 carbamazepine [From Tegretol] AdvReac Hives Unverified 07/28/18 00:14 cephalexin [From Keflex] AdvReac Hives Unverified 07/28/18 00:14 clorazepate dipotassium AdvReac Hives Unverified 07/28/18 00:14 divalproex sodium AdvReac Hives Unverified 07/28/18 00:14 [From Depakote] lamotrigine [From Lamictal] AdvReac Hives Unverified 07/28/18 00:14 levetiracetam [From Keppra] AdvReac Hives Unverified 07/28/18 00:14 phenytoin [From Dilantin] AdvReac Hives Unverified 07/28/18 00:14 sertraline [From Zoloft] AdvReac Hives Unverified 07/28/18 00:14 topiramate [From Topamax] AdvReac Hives Unverified 07/28/18 00:14 trazodone AdvReac Hives Unverified 07/28/18 00:14 Home Meds Previous Rx's Medication Instructions Recorded gabapentin 200 mg PO BID #120 cap 10/30/20 haloperidol 5 mg PO HS #30 tab 10/30/20 Results & Data (ED) Vital Signs Vital Signs - 24 hr 11/17/20 21:48 11/17/20 22:08 11/18/20 04:17 Temperature 36.4 C L 37.1 C Temperature Source Temporal Artery Scan Oral Pulse Rate 117 H Pulse Rate [Bilateral Radial] 95 H 103 H Pulse Rhythm [Bilateral Radial] Regular Pulse Strength [Bilateral Radial] Normal Respiratory Rate 16 18 18 Respiratory Effort / Characteristics Non-Labored Respiratory Depth Normal Normal Blood Pressure 137/79 Blood Pressure [Left Arm] 106/89 111/68 Blood Pressure Mean 98 Blood Pressure Mean [Left Arm] 94 82 Blood Pressure Position [Left Arm] Sitting Lying Pulse Oximetry 97 96 100 Oxygen Delivery Method Room Air Room Air Room Air Sepsis Recent Fever Within 48 Hours No Sepsis New/Unexplained Change in Mental Status N/A Sepsis Action Taken by Nursing No Action Required Laboratory Data Attestation: I reviewed the patient's lab results. Result diagrams: 11/17/20 22:55 11/17/20 22:55 Lab Results 11/17/20 11/17/20 11/17/20 Range/Units 22:51 22:51 22:51 WBC (4.8-10.8) K/uL RBC (4.2-5.4) M/uL Hgb (12.0-16.0) g/dL Hct (37-47) % MCV (80-100) fL MCH (25-34) pg MCHC (32-36) g/dL RDW Std Deviation (36.4-46.3) fL RDW Coeff of Alfie (11.5-14.5) % Plt Count (130-400) K/uL MPV (7.4-10.4) fL Immature Gran % (Auto) % Neut % (Auto) % Lymph % (Auto) % Dodge % (Auto) % Eos % (Auto) % Baso % (Auto) % Neut # (Auto) (1.4-6.5) K/uL Lymph # (Auto) (1.2-3.4) K/uL Dodge # (Auto) (0.11-0.59) K/uL Eos # (Auto) (0-0.5) K/uL Baso # (Auto) (0-0.2) K/uL Immature Gran # (Auto) (0.00-0.02) K/uL Sodium (136-145) mmol/L Potassium (3.5-5.1) mmol/L Chloride (98-107) mmol/L Carbon Dioxide (21-32) mmol/L Anion Gap (3-11) BUN (7-18) mg/dl Creatinine (0.6-1.2) mg/dl Est Cr Clr Drug Dosing ml/min Est GFR ( Amer) Est GFR (Non-Af Amer) BUN/Creatinine Ratio (10-20) Glucose (70-99) mg/dl Calcium (8.5-10.1) mg/dl Total Bilirubin (0.2-1) mg/dl AST (15-37) U/L ALT (12-78) U/L Alkaline Phosphatase (45-117) U/L Total Protein (6.4-8.2) gm/dl Albumin (3.4-5.0) gm/dl Globulin (2.5-4.0) gm/dl Albumin/Globulin Ratio (0.9-2) TSH (0.300-4.500) uIu/ml HCG, Qual (Negative) Urine Color Yellow Urine Appearance Clear (Clear) Urine pH 5.5 (4.5-7.5) Ur Specific Hecker 1.017 (1.000-1.030) Urine Protein Negative (Negative) Urine Glucose (UA) Negative (Negative) Urine Ketones Negative (Negative) Urine Blood Negative (Negative) Urine Nitrite Negative (Negative) Urine Bilirubin Negative (Negative) Urine Urobilinogen Negative (Negative) Ur Leukocyte Esterase Negative (Negative) Salicylates (2.8-20) mg/dl Urine Opiates Screen Neg (Neg) Ur Methadone, Qual Neg (Neg) Acetaminophen (10-30) ug/ml Urine Barbiturates Neg (Neg) Ur Phencyclidine (PCP) Neg (Neg) U Amphetamin/Meth Scrn Neg (Neg) MDMA (Ecstasy) Screen Neg (Neg) U Benzodiazepines Scrn Neg (Neg) Ur Cocaine Metabolite Neg (Neg) U Marijuana (THC) Screen Pos H (Neg) Ethyl Alcohol mg/dL (0-3) mg/dl COVID-19 Eval Order Covid19 IDNow atMUTC SARS-CoV-2, RNA, NAAT (NEGATIVE) 11/17/20 11/17/20 11/17/20 Range/Units 22:51 22:55 22:55 WBC 6.71 (4.8-10.8) K/uL RBC 4.45 (4.2-5.4) M/uL Hgb 13.4 (12.0-16.0) g/dL Hct 37.8 (37-47) % MCV 84.9 (80-100) fL MCH 30.1 (25-34) pg MCHC 35.4 (32-36) g/dL RDW Std Deviation 38.9 (36.4-46.3) fL RDW Coeff of Alfie 12.5 (11.5-14.5) % Plt Count 303 (130-400) K/uL MPV 9.3 (7.4-10.4) fL Immature Gran % (Auto) 0.1 % Neut % (Auto) 62.6 % Lymph % (Auto) 25.3 % Dodge % (Auto) 11.5 % Eos % (Auto) 0.4 % Baso % (Auto) 0.1 % Neut # (Auto) 4.19 (1.4-6.5) K/uL Lymph # (Auto) 1.70 (1.2-3.4) K/uL Dodge # (Auto) 0.77 H (0.11-0.59) K/uL Eos # (Auto) 0.03 (0-0.5) K/uL Baso # (Auto) 0.01 (0-0.2) K/uL Immature Gran # (Auto) 0.01 (0.00-0.02) K/uL Sodium (136-145) mmol/L Potassium (3.5-5.1) mmol/L Chloride (98-107) mmol/L Carbon Dioxide (21-32) mmol/L Anion Gap (3-11) BUN (7-18) mg/dl Creatinine (0.6-1.2) mg/dl Est Cr Clr Drug Dosing ml/min Est GFR ( Amer) Est GFR (Non-Af Amer) BUN/Creatinine Ratio (10-20) Glucose (70-99) mg/dl Calcium (8.5-10.1) mg/dl Total Bilirubin (0.2-1) mg/dl AST (15-37) U/L ALT (12-78) U/L Alkaline Phosphatase (45-117) U/L Total Protein (6.4-8.2) gm/dl Albumin (3.4-5.0) gm/dl Globulin (2.5-4.0) gm/dl Albumin/Globulin Ratio (0.9-2) TSH (0.300-4.500) uIu/ml HCG, Qual Negative (Negative) Urine Color Urine Appearance (Clear) Urine pH (4.5-7.5) Ur Specific Hecker (1.000-1.030) Urine Protein (Negative) Urine Glucose (UA) (Negative) Urine Ketones (Negative) Urine Blood (Negative) Urine Nitrite (Negative) Urine Bilirubin (Negative) Urine Urobilinogen (Negative) Ur Leukocyte Esterase (Negative) Salicylates (2.8-20) mg/dl Urine Opiates Screen (Neg) Ur Methadone, Qual (Neg) Acetaminophen (10-30) ug/ml Urine Barbiturates (Neg) Ur Phencyclidine (PCP) (Neg) U Amphetamin/Meth Scrn (Neg) MDMA (Ecstasy) Screen (Neg) U Benzodiazepines Scrn (Neg) Ur Cocaine Metabolite (Neg) U Marijuana (THC) Screen (Neg) Ethyl Alcohol mg/dL (0-3) mg/dl COVID-19 Eval Order SARS-CoV-2, RNA, NAAT NEGATIVE (NEGATIVE) 11/17/20 11/17/20 11/17/20 Range/Units 22:55 22:55 22:55 WBC (4.8-10.8) K/uL RBC (4.2-5.4) M/uL Hgb (12.0-16.0) g/dL Hct (37-47) % MCV (80-100) fL MCH (25-34) pg MCHC (32-36) g/dL RDW Std Deviation (36.4-46.3) fL RDW Coeff of Alfie (11.5-14.5) % Plt Count (130-400) K/uL MPV (7.4-10.4) fL Immature Gran % (Auto) % Neut % (Auto) % Lymph % (Auto) % Dodge % (Auto) % Eos % (Auto) % Baso % (Auto) % Neut # (Auto) (1.4-6.5) K/uL Lymph # (Auto) (1.2-3.4) K/uL Dodge # (Auto) (0.11-0.59) K/uL Eos # (Auto) (0-0.5) K/uL Baso # (Auto) (0-0.2) K/uL Immature Gran # (Auto) (0.00-0.02) K/uL Sodium 136 (136-145) mmol/L Potassium 3.7 (3.5-5.1) mmol/L Chloride 104 (98-107) mmol/L Carbon Dioxide 25 (21-32) mmol/L Anion Gap 6.0 (3-11) BUN 15 (7-18) mg/dl Creatinine 0.98 (0.6-1.2) mg/dl Est Cr Clr Drug Dosing 66.1 ml/min Est GFR ( Amer) 94.9 Est GFR (Non-Af Amer) 81.9 BUN/Creatinine Ratio 14.9 (10-20) Glucose 98 (70-99) mg/dl Calcium 9.3 (8.5-10.1) mg/dl Total Bilirubin 0.6 (0.2-1) mg/dl AST 16 (15-37) U/L ALT 24 (12-78) U/L Alkaline Phosphatase 52 (45-117) U/L Total Protein 8.0 (6.4-8.2) gm/dl Albumin 4.7 (3.4-5.0) gm/dl Globulin 3.3 (2.5-4.0) gm/dl Albumin/Globulin Ratio 1.4 (0.9-2) TSH 1.390 (0.300-4.500) uIu/ml HCG, Qual (Negative) Urine Color Urine Appearance (Clear) Urine pH (4.5-7.5) Ur Specific Hecker (1.000-1.030) Urine Protein (Negative) Urine Glucose (UA) (Negative) Urine Ketones (Negative) Urine Blood (Negative) Urine Nitrite (Negative) Urine Bilirubin (Negative) Urine Urobilinogen (Negative) Ur Leukocyte Esterase (Negative) Salicylates 1.7 L (2.8-20) mg/dl Urine Opiates Screen (Neg) Ur Methadone, Qual (Neg) Acetaminophen < 2 L (10-30) ug/ml Urine Barbiturates (Neg) Ur Phencyclidine (PCP) (Neg) U Amphetamin/Meth Scrn (Neg) MDMA (Ecstasy) Screen (Neg) U Benzodiazepines Scrn (Neg) Ur Cocaine Metabolite (Neg) U Marijuana (THC) Screen (Neg) Ethyl Alcohol mg/dL < 3.0 (0-3) mg/dl COVID-19 Eval Order SARS-CoV-2, RNA, NAAT (NEGATIVE) Administered Medications Discontinued Medications Hydroxyzine HCl (Hydroxyzine Hcl 25 Mg Tab) 25 mg PO NOW STA Stop: 11/17/20 23:53 Last Admin: 11/17/20 23:55 Dose: 25 mg Documented by: [id number] Discharge Plan Visit Data Chief Complaint: Mental Health Evaluation Stated Complaint: mental health eval ED Provider: Leopoldo Cordero Discharge Problem: Auditory hallucinations, Verbalizes suicidal thoughts Forms Stand Alone Forms: My [facility], Suicide Prevention Resources Prescriptions Prescriptions: No Action haloperidol 5 mg Tablet 5 mg PO HS Qty: 30 RF: 0 gabapentin 100 mg Capsule 200 mg PO BID Qty: 120 RF: 0
--- NOTE | 2020-11-18 02:03 | Emergency Department Note ---
ED Visit Note ED Physician Sign Out Note: 24 yr old female with history of PTSD and hallucinations arrives for evaluation of command hallucinations to kill self. Evaluated by Dr Beach and medically cleared, patient wishing 201 admission. History of pseudoseizures with one yesterday. Patient stable, comfortable and in no distress. Meds ordered for morning already. Signed out to me pending psychiatric placement on voluntary basis. Signed out to Dr Ramsey pending placement. Leopoldo Cordero MD
--- NOTE | 2020-11-18 07:06 | Emergency Department Note ---
ED Visit Note I did receive signout from Dr. Cordero. Patient is known history of PTSD and history of hallucinations with command hallucinations of wanting to kill her self. Patient has been medically cleared. Patient is a voluntary 201. Patient has made no active furtherance. Patient does have a history of pseudoseizures and did have one episode of pseudoseizure 2 days ago. Patient was accepted to S[facility] and admitted for inpatient psychiatric treatment. .
[2020-11-18] MEDS ORDERED: hydrOXYzine HCl 25 MG TAB PO PRN ×2 (08:09)
[2020-11-18] MEDS ORDERED: BISMUTH SUBSALICYLATE LIQD 236 ML PO PRN (08:09)
[2020-11-18] MEDS ORDERED: MAGNESIUM HYDROXIDE SUSP 30 ML UDC PO PRN (08:09)
[2020-11-18] MEDS ORDERED: ACETAMINOPHEN 325 MG TAB PO PRN (08:09)
[2020-11-18] MEDS ORDERED: SODIUM CHLORIDE 0.65% NA SOLN 45 ML (OCEAN) PRN (08:09)
[2020-11-18] MEDS ORDERED: ALUMINUM/MAGNESIUM SUSP 30 ML UDC PO PRN (08:09)
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
[2020-11-18] MEDS ORDERED: haloperidoL 5 MG TAB PO PRN (10:38)
--- NOTE | 2020-11-18 10:47 | Communication Note ---
Date of Service: November 18, 2020 Assessment today, patient reported chest pain, which she states began overnight, and is across the front of her chest. Denies any associated symptoms including radiation, shortness of breath, nausea or vomiting. Reviewed that she had EKGs while on the medical floor, will repeat EKG today and determine the need for consultation. Vital signs normal with the exception of slight tachycardia, rate 102. Encourage patient to be drinking adequate amounts of fluids, as she indicates she has not been eating or drinking since she came to the hospital.
[2020-11-18] MEDS: GABAPENTIN 100 MG CAP PO SCH ×2 (10:59→21:06)
[2020-11-18] MEDS: PROPRANOLOL HCL 10 MG TAB PO PRN ×2 (11:27→21:05)
[2020-11-18] MEDS ORDERED: BENZTROPINE MESYLATE 1 MG TAB PO PRN (11:44)
[2020-11-18] MEDS ORDERED: haloperidoL 5 MG TAB PO SCH (21:00)
[2020-11-18] MEDS: haloperidoL 5 MG TAB PO SCH (21:07)
[2020-11-19] MEDS: GABAPENTIN 100 MG CAP PO SCH ×2 (10:14→20:40)
--- NOTE | 2020-11-19 11:38 | Psychiatric Progress Note ---
Date of Service November 19, 2020 Impression / Recommendations Impression 24-year-old single female with a history of trauma, PTSD, nonepileptic seizures, and hallucinations thought to be related to trauma who presents with worsening hallucinations telling her to cut herself and inability to contract for safety outside of the hospital. She reports her Haldol was just increased a few days ago by her outpatient psychiatrist. Case is complex due to limited adherence, ongoing cannabis use despite recommendations to avoid hallucinogens, complex trauma with inability to adhere to treatment recommendations of her trauma therapist, lack of structure and support at home. Pt did submit her 72-hour notice, reportedly out of frustration that her medications were not being adjusted to the degree she desired. Will confirm outpatient appointments and address any remaining safety concerns, though she is denying SI today. (1) Auditory hallucinations: 11/18 -after discussion with trauma therapist during last hospitalization, these appear to be related to PTSD/BPD. She reported initial good response to haloperidol during last hospitalization, dose was recently increased to 10 mg daily, which I will continue, with an addition of a 5 mg as needed dose. Fasting labs reviewed from 10/29/2020, notable for cholesterol 229. Although I am hesitant to treat these hallucinations with antipsychotics, given the risk of side effects and potential for negative long-term effects, the patient is insisting on use of medication to target these symptoms. Unfortunately she has been unwilling to commit to trauma therapy and now has been discharged from care, as part of those recommendations was to stop smoking marijuana, attend and participate in appointments, and allow communication with other outpatient clinicians, which she was not doing. 11/19 - Agree with assessment above. Unfortunately, patient's admits her entire goal of admission was for "medication changes". Rationale was provided regarding recommendation that we continue to monitor symptoms, given that haloperidol was just adjusted. Concern was also reviewed regarding continued cannabis abuse and limited motivation for change when engaging with outpatient treatment. - Pt reported desire to sign her 72-hour notice, which was offered to her. Will take steps to confirm outpatient appointments, as she will need prompt follow-up with outpatient providers. - Pt denied SI today, but did admit to ongoing auditory hallucinations. (2) Generalized anxiety disorder: 11/18 -patient reports exacerbation of anxiety and is requesting medication for that, stating hydroxyzine does not work. Will trial propanolol 10 mg twice daily as needed, reviewed risks, benefits, and side effects. -Patient would benefit from working on behavioral techniques to manage anxiety and focusing on healthy coping skills, rather than medications for every symptom. 11/19 - Pt did trial one dose of propranolol, though reporting she has been resistant to asking for additional doses which is impacting our ability to know if it is beneficial for her continued reports of anxiety - Pt continues to request new medications, but then states that all reasonable options offered have been tried and are unsuccessful. Pt requests lorazepam, and reasoning was provided as to why the medication would not be ordered during this stay (ongoing cannabis abuse, concern for misuse, etc). (3) PTSD (post-traumatic stress disorder): 11/18 -as above (4) Psychogenic nonepileptic seizure: 11/18 -we will utilize gabapentin while in the hospital, patient unwilling to stop using medical marijuana and insists on returning to it after discharge, so will not continue this medication when she leaves as she states she will not take it. -Send records to her outpatient neurologist and schedule an earlier appointment. (5) Cannabis abuse: 11/18 -ongoing, limited insight and motivation to change. We reviewed the risks of worsening psychosis, and cannot rule out a substance-induced psychosis. 11/19 - Continues to demonstrate limited insight regarding the impact of her marijuana use on her mental health. She clearly verbalizes she has not desire to make changes to her marijuana use. Risk Factors Assessment Male: No : Yes Do You Have Access To A Gun?: No Health Problems: Yes Protective Factors Assessment Employed: No Interval History Identifying Information ROYA HDEZ is a 24-year-old F who currently lives in [place] alone, has a history of PTSD/BPD with related psychosis, cannabis use, nonepileptic seizures, and recent hospitalization here last month, and was admitted on 11/18/20 08:09 on a 201 voluntary commitment for hallucinations. Chief Complaint "Um, it's ok. I'm just getting really antsy." Review of Systems Notes Constitutional: reports "shaking" related to anxiety Cardiovascular: denied Respiratory: denied Gastrointestinal: denied Neurological: denied Psychiatric: denies symptoms other than stated above Total of at least 10 systems reviewed, pertinent positives as above and in HPI. Sleep Information Total Hours of Sleep: 8 Meal Information Percent Meal Consumed - Breakfast: 15 Percent Meal Consumed - Lunch: 12 Percent Meal Consumed - Dinner: 30 Subjective Subjective Patient was seen & assessed and interval progress reviewed with nursing and social work. Staff report the patient has been participating in groups. She continues to verbalize that she experiences visual and auditory hallucinations, but has not reported acute safety concerns. Pt was seen today to assess progress since admission. Pt stated things are going "ok. I'm just getting really antsy." Pt states that "it's day 2, so I'm ready to go. And I just have to fight the urge to leave." When asked what patient feels is causing the urges to leave treatment so quickly, the patient states "well, I came here for medication changes and I haven't met with the doctor yet and nothing has been adjusted." This provider reminded the patient that she met with our psychiatrist yesterday to complete her admission assessment, and that in fact medication changes were discussed. Pt states "Vistaril's not an answer for me, it doesn't work." This provider indicated that she was talking about the propranolol which is available as needed for anxiety. Pt states she did take one dose of the medication, but "I don't want to keep asking for it, then it has to come up from the pharmacy and people get busy." This provider explained that although this is the process for obtaining as needed medications, this is not a reason for her to not request medications that have been recommended for her. Pt continued to externalize blame and make inaccurate statements about a variety of things on the unit. She eventually stated "if you're not going to change my medications, then I want to sign my 72-hour notice. I came here for medication changes and if you're not going to change my meds and I still have to feel this way, I'd rather feel this way at home." This provider explained that her haloperidol was just recently titrated and that the intention was not to continue to increase the medication preemptively. Pt continued to bring up concerns such as needing medications for anxiety, sleep, and hallucinations - but then refusing to discuss options because "I've tried everything at this point and nothing you suggest will work." Consistent with past admissions, patient states "the only thing that I've tried that works is Ativan, but I'm sure you won't give me that for whatever reason." This provider did take time to educate the patient on the contraindication of cannabis use with benzodiazepines (a conversation that was had during her last admission as well). We did discuss the concern that her frequent marijuana use may be impacting her mood more significantly that she realizes, but she remains resistant to consid ering this is a possibility. Pt admitted that she is not having suicidal thoughts, but admits her hallucinations are ongoing. This provider communicated patient's desire to sign a 72-hour notice to staff. Physical Exam Psychiatric Orientation: alert Apperance: appropriately dressed, appropriately groomed and appeared stated age Eye Contact: good eye contact Motor Behavior: no abnormal motor movements Speech: normal rate/rhythm/volume of speech Affect: + blunted affect (appearing subdued, but not overtly depressed or anxious); + mood not congruent with affect Mood: + anxious mood ("I'm so anxious, can't you see? I'm shaking") Thought Process: goal directed thought process rigid and infelxible thinking Thought Content: + preoccupation and + cognitive distortions Suicidal Thoughts: denies suicidal thoughts and denies suicidal intent Homicidal Thoughts: denies homicidal thoughts Hallucinations: + auditory hallucinations and + visual hallucinations Cognition: attention grossly intact and language grossly intact Estimated Intelligence: + below average estimated intelligence (low-normal IQ per neuropsych testing) Insight: + limited insight Judgement: + limited judgement Vital Signs (Past 24 Hours) Last Vital Signs Temp 36.6 C 11/19/20 06:00 Pulse 66 11/19/20 10:24 Resp 16 11/19/20 06:00 BP 125/80 11/19/20 10:24 Pulse Ox 100 11/18/20 04:17 Results & Data ([facility]) Current Inpatient Medications Current Inpatient Medications: Current Inpatient Medications Acetaminophen (Acetaminophen 325 Mg Tab) 650 mg PO Q4H PRN PRN Reason: Headache or Minor Fever Stop: 12/18/20 08:08 Al Hydrox/Mg Hydrox/Simethicone (Aluminum/Magnesium Susp 30 Ml Udc) 30 ml PO Q4H PRN PRN Reason: GI Upset Stop: 12/18/20 08:08 Benztropine Mesylate (Benztropine Mesylate 1 Mg Tab) 1 mg PO Q6H PRN PRN Reason: EPS/dystonia Stop: 12/18/20 11:43 Bismuth Subsalicylate (Bismuth Subsalicylate Liqd 236 Ml) 15 ml PO PRN PRN PRN Reason: Loose Stool Stop: 12/18/20 08:08 Gabapentin (Gabapentin 100 Mg Cap) 200 mg PO BID YASMANI Stop: 12/18/20 08:59 Last Admin: 11/19/20 10:14 Dose: 200 mg Documented by: Haloperidol (Haloperidol 5 Mg Tab) 5 mg PO Q6H PRN PRN Reason: psychosis Stop: 12/18/20 10:37 Haloperidol (Haloperidol 5 Mg Tab) 10 mg PO HS YASMANI Stop: 12/18/20 21:59 Last Admin: 11/18/20 21:07 Dose: 10 mg Documented by: Hydroxyzine HCl (Hydroxyzine Hcl 25 Mg Tab) 50 mg PO HSZ PRN PRN Reason: Insomnia Stop: 12/18/20 08:08 Hydroxyzine HCl (Hydroxyzine Hcl 25 Mg Tab) 25 mg PO Q4H PRN PRN Reason: Anxiety Stop: 12/18/20 08:08 Last Admin: 11/19/20 10:18 Dose: 25 mg Documented by: Magnesium Hydroxide (Magnesium Hydroxide Susp 30 Ml Udc) 30 ml PO DAILY PRN PRN Reason: Constipation Stop: 12/18/20 08:08 Propranolol HCl (Propranolol Hcl 10 Mg Tab) 10 mg PO BID PRN PRN Reason: Anxiety Stop: 12/18/20 20:59 Last Admin: 11/18/20 21:05 Dose: 10 mg Documented by: Sodium Chloride (Sodium Chloride 0.65% Na Soln 45 Ml ([facility])) 1 - 2 sprays NA PRN PRN PRN Reason: Nasal Dryness/Congestion Stop: 12/18/20 08:08 Mental Health & Subst Abuse Tx Psychiatrist Name of Psychiatrist: Neil Date of Appointment with Psychiatrist: 12/11/20 Time of Appointment with Psychiatrist: 1000am Therapist Name of Therapist: YAKOV Almonte Therapist's Date of Therapist Appointment: 11/19/20 Time of Therapist Appointment: 1300 Product Info Specialist Name of Product Info Specialist: Marleny Alvarado Phone Number for Product Info Specialist: [phone] Post Discharge Appointments Primary Care Physician Name Of Family Doctor: Dr. Moreno at [place] [id number] in [place]
[2020-11-19] MEDS: PROPRANOLOL HCL 10 MG TAB PO PRN ×2 (11:48→20:45)
[2020-11-19] MEDS: haloperidoL 5 MG TAB PO SCH (20:40)
[2020-11-20 00:11] LABS: Marijuana Quant, GCMS Urine 341 ng/mL (<5)
[2020-11-20] MEDS: GABAPENTIN 100 MG CAP PO SCH (08:33)
[2020-11-20] MEDS ORDERED: BENZTROPINE MESYLATE 1 MG TAB PO STA (11:47)
--- NOTE | 2020-11-20 13:34 | Discharge Summary ---
Date of Service November 20, 2020 History of Present Illness Patient is well-known to us from a recent hospitalization on our unit in September 2020, also for hallucinations, which were felt to be related to her trauma history and not a primary thought disorder. She was started on gabapentin (neurology consult, saw Dr. Falcon) and haloperidol, care was coordinated with her multiple outpatient clinicians, and she was discharged to return to care in [place]. She returned to the ER overnight reporting auditory hallucinations of voices telling her to hurt herself, seeing her father and "evil creatures," as well as faces on surfaces. She reported hearing a knocking sound, yelling, and random voices telling her to cut herself. She said she had stopped taking the gabapentin and was only using marijuana for seizures, but had a seizure the day prior. Admission labs notable for UDS + THC. She was unable to contract for safety outside of the hospital, and requested to sign in voluntarily. On my assessment, she states she felt "fine for a couple days" after being discharged from our unit 10/29, "but then they started to act up again, they really wanted me to cut myself lately." She saw her psychiatrist last week and Haldol was increased to 10mg. She stopped taking the gabapentin "as soon as I got out, because the medical marijuana." She has been smoking 4 times a day, which she says is a decrease from previous use, and did not follow up with neurology, thinks her appointment is not until next year. She just had her art show last weekend, which she says "went really well." She met with her BC but can't identify what they were working on. She states her psychiatrist wanted her to go to [facility] for ketamine infusions for "hallucinations and the PTSD." She did not look into that further. She denies SI but reports thoughts of cutting in relation to AH. She does not think the increased dose of Haldol has been helpful and wants a medication change. She also wants medication for anxiety, stating she is so anxious she is shaking all the time and has had difficulty sleeping. Physical Exam Psychiatric Orientation: alert, oriented x 3 and cooperative Apperance: appropriately dressed, appropriately groomed and appeared stated age Eye Contact: + fair eye contact Motor Behavior: steady gait and station and + EPS Mild cogwheeling on examination Speech: normal rate/rhythm/volume of speech Affect: euthymic affect "Much better." Thought Process: goal directed thought process and linear/logical thought process Suicidal Thoughts: denies suicidal thoughts and denies suicidal plan Homicidal Thoughts: denies homicidal thoughts and denies homicidal plan Hallucinations: + auditory hallucinations and + visual hallucinations Patient reports that both perceptual disturbances, auditory and visual, persist, but are currently manageable. Cognition: recent memory grossly intact, remote memory grossly intact and attention grossly intact Estimated Intelligence: + above average estimated intelligence Insight: + fair insight Judgement: good judgement Vital Signs (Past 24 Hours) Last Vital Signs Temp 36.3 C L 11/20/20 11:19 Pulse 114 H 11/20/20 11:19 Resp 16 11/20/20 11:19 BP 118/80 11/20/20 11:19 Pulse Ox 100 11/20/20 11:19 Principal Diagnosis Unspecified psychosis. Psychiatric Data During the course of hospitalization the patient was offered various modalities of psychiatric treatment and education. These included individual, group, recreational and psychiatric chemotherapy. In addition, a family intervention with the patient's permission was provided. The patient was continued on her outpatient medications, namely haloperidol 10 mg daily with gabapentin 200 mg 2 times daily. Benztropine 1 mg p.o. twice daily was added at the end of the patient's stay because of evident cogwheel rigidity and a patient report consistent with mild akathisia. During individual, group and recreational therapies the patient worked on improving her individual coping strategies. She also revisited her community safety plan. She explained that her concern at admission was that she was hearing voices that were telling her to cut herself. She clarified that by this the reference was to superficial self-injurious b ehaviors targeted to the fleshy portions of her anatomy. She notes that she does have a past history of engaging in SIB, but she does not wish to reintroduce the behavior and was concerned because of the intensity of the voices and the impulse. She reports that she was not having thoughts of actual suicide and did not have suicidal intent. The patient indicated that she had thought that one of the interventions that would occur during the hospitalization would be to change her medications. However, our finding is that she responds most favorably to haloperidol and our focus was on helping the patient improve her nonpharmacologic coping strategies. The patient's affect improved. She reported that her mood has gotten significantly better, and she reported that although she was continuing to experience auditory, and occasionally visual hallucinations these "voices" and "visions" were of a diminished nature and degree of intensity, so that the patient felt that she was not likely or disposed to take action based on their content. She worked on finalizing her community safety plan and demonstrated that she was fully conversant with that. Her future plans included spending a few days with a friend, and then going to stay with her mother in [place], [place]. It was determined that some of the patient's complaints of anxiety restlessness may be related to extrapyramidal side effects, and, as noted above, she did have cogwheel rigidity on testing. As was the case during her most recent previous admission we attempted to convince the patient that she should avoid use of marijuana while undergoing treatment for psychosis. However, the patient makes it clear that she does not agree with this recommendation and intends to continue to use medical marijuana for her PTSD symptoms. Day of Discharge Assessment On the day of discharge, the patient was found to be cooperative and pleasant. She was appropriately dressed and groomed and participated fully in the discharge assessment. Her speech was delivered at a normal rate and volume. Her habitus was marked by a very fine tremor of both hands, and on examination evidence of cogwheel rigidity was observed. The patient's thought processes demonstrated tight associations. No delusional material was identified in the patient's thought content. She did note that she is continuing to experience periodic auditory and, occasionally, visual hallucinations, but she has full insight into the reality that these experiences are internally generated. The patient convincingly reports that she is not experiencing thoughts of suicide and that she has no suicide plan. The patient also reports that she has not having any thoughts of causing physical harm to the person or property of others. She does clarify that her concern at admission had been that she was having more intensive thoughts of engaging in superficial self cutting in fleshy portions of her anatomy, not with the intent of killing herself but, instead, with the intent of relieving tension and stressa behavior that she has previously engaged in, but is trying very much to avoid in the present. Her intelligence is estimated to be above average. The patient's insight and judgment are assessed as being between fair and good. Transition of Care Transition Of Care Record: was reviewed with the patient Advance Directives Advance Directives Information Provided: Yes Advance Directives: No Mental Health Advance Directive: No Advance Directives on File: No Living Will: No Power of Supervisor Packing Room: No Advance Directives Reason:: Declines as Mental Health Visit. Risk Factors Assessment Psychotic illness. Borderline personality traits. History of recurrent thoughts of self-harm. Male: No : Yes Do You Have Access To A Gun?: No Health Problems: Yes Mental Health Diagnoses: Yes Substance Use Disorders: Yes Previous Attempt: No Protective Factors Assessment Mu-Ism Beliefs: No : No Responsible for Young Children: No Employed: No Stable Relationships: Yes Supportive Family: Yes Good Rapport with Provider: Yes Absence of Any Risk Factors Above: No Tobacco Cessation at Discharge Tobacco Cessation Medication Prescribed at Discharge: Not Applicable/Non-Smoker Antipsychotic Medications History of perceptual disturbances: Auditory and visual Total Time Total Time Spent: Greater Than 30 Minutes Total Time Includes: Examination of the patient, Discharge Planning, Medication Reconciliation and Communication with other providers Discharge Data Lab Results 11/17/20 11/17/20 11/17/20 22:51 22:51 22:51 WBC RBC Hgb Hct MCV MCH MCHC RDW Std Deviation RDW Coeff of Alfie Plt Count MPV Immature Gran % (Auto) Neut % (Auto) Lymph % (Auto) [place] % (Auto) Eos % (Auto) Baso % (Auto) Neut # (Auto) Lymph # (Auto) [place] # (Auto) Eos # (Auto) Baso # (Auto) Immature Gran # (Auto) Sodium Potassium Chloride Carbon Dioxide Anion Gap BUN Creatinine Est Cr Clr Drug Dosing Est GFR ( Amer) Est GFR (Non-Af Amer) BUN/Creatinine Ratio Glucose Calcium Total Bilirubin AST ALT Alkaline Phosphatase Total Protein Albumin Globulin Albumin/Globulin Ratio TSH HCG, Qual Urine Color Yellow Urine Appearance Clear Urine pH 5.5 Ur Specific Hughes 1.017 Urine Protein Negative Urine Glucose (UA) Negative Urine Ketones Negative Urine Blood Negative Urine Nitrite Negative Urine Bilirubin Negative Urine Urobilinogen Negative Ur Leukocyte Esterase Negative Salicylates Urine Opiates Screen Neg Ur Methadone, Qual Neg Acetaminophen Urine Barbiturates Neg Ur Phencyclidine (PCP) Neg U Amphetamin/Meth Scrn Neg MDMA (Ecstasy) Screen Neg U Benzodiazepines Scrn Neg Ur Cocaine Metabolite Neg U Marijuana (THC) Screen Pos H U Marijuana THC Carboxy Drug Screen Comment Ethyl Alcohol mg/dL COVID-19 Eval Order Covid19 [facility] SARS-CoV-2, RNA, NAAT 11/17/20 11/17/20 11/17/20 22:51 22:51 22:55 WBC RBC Hgb Hct MCV MCH MCHC RDW Std Deviation RDW Coeff of Alfie Plt Count MPV Immature Gran % (Auto) Neut % (Auto) Lymph % (Auto) [place] % (Auto) Eos % (Auto) Baso % (Auto) Neut # (Auto) Lymph # (Auto) [place] # (Auto) Eos # (Auto) Baso # (Auto) Immature Gran # (Auto) Sodium Potassium Chloride Carbon Dioxide Anion Gap BUN Creatinine Est Cr Clr Drug Dosing Est GFR ( Amer) Est GFR (Non-Af Amer) BUN/Creatinine Ratio Glucose Calcium Total Bilirubin AST ALT Alkaline Phosphatase Total Protein Albumin Globulin Albumin/Globulin Ratio TSH HCG, Qual Negative Urine Color Urine Appearance Urine pH Ur Specific Hughes Urine Protein Urine Glucose (UA) Urine Ketones Urine Blood Urine Nitrite Urine Bilirubin Urine Urobilinogen Ur Leukocyte Esterase Salicylates Urine Opiates Screen Ur Methadone, Qual Acetaminophen Urine Barbiturates Ur Phencyclidine (PCP) U Amphetamin/Meth Scrn MDMA (Ecstasy) Screen U Benzodiazepines Scrn Ur Cocaine Metabolite U Marijuana (THC) Screen U Marijuana THC Carboxy 341 H Drug Screen Comment SEE NOTE Ethyl Alcohol mg/dL COVID-19 Eval Order SARS-CoV-2, RNA, NAAT NEGATIVE 11/17/20 11/17/20 11/17/20 22:55 22:55 22:55 WBC 6.71 RBC 4.45 Hgb 13.4 Hct 37.8 MCV 84.9 MCH 30.1 MCHC 35.4 RDW Std Deviation 38.9 RDW Coeff of Lafie 12.5 Plt Count 303 MPV 9.3 Immature Gran % (Auto) 0.1 Neut % (Auto) 62.6 Lymph % (Auto) 25.3 [place] % (Auto) 11.5 Eos % (Auto) 0.4 Baso % (Auto) 0.1 Neut # (Auto) 4.19 Lymph # (Auto) 1.70 [place] # (Auto) 0.77 H Eos # (Auto) 0.03 Baso # (Auto) 0.01 Immature Gran # (Auto) 0.01 Sodium 136 Potassium 3.7 Chloride 104 Carbon Dioxide 25 Anion Gap 6.0 BUN 15 Creatinine 0.98 Est Cr Clr Drug Dosing 66.1 Est GFR ( Amer) 94.9 Est GFR (Non-Af Amer) 81.9 BUN/Creatinine Ratio 14.9 Glucose 98 Calcium 9.3 Total Bilirubin 0.6 AST 16 ALT 24 Alkaline Phosphatase 52 Total Protein 8.0 Albumin 4.7 Globulin 3.3 Albumin/Globulin Ratio 1.4 TSH 1.390 HCG, Qual Urine Color Urine Appearance Urine pH Ur Specific Hughes Urine Protein Urine Glucose (UA) Urine Ketones Urine Blood Urine Nitrite Urine Bilirubin Urine Urobilinogen Ur Leukocyte Esterase Salicylates 1.7 L Urine Opiates Screen Ur Methadone, Qual Acetaminophen < 2 L Urine Barbiturates Ur Phencyclidine (PCP) U Amphetamin/Meth Scrn MDMA (Ecstasy) Screen U Benzodiazepines Scrn Ur Cocaine Metabolite U Marijuana (THC) Screen U Marijuana THC Carboxy Drug Screen Comment Ethyl Alcohol mg/dL COVID-19 Eval Order SARS-CoV-2, RNA, NAAT 11/17/20 22:55 WBC RBC Hgb Hct MCV MCH MCHC RDW Std Deviation RDW Coeff of Alfie Plt Count MPV Immature Gran % (Auto) Neut % (Auto) Lymph % (Auto) [place] % (Auto) Eos % (Auto) Baso % (Auto) Neut # (Auto) Lymph # (Auto) [place] # (Auto) Eos # (Auto) Baso # (Auto) Immature Gran # (Auto) Sodium Potassium Chloride Carbon Dioxide Anion Gap BUN Creatinine Est Cr Clr Drug Dosing Est GFR ( Amer) Est GFR (Non-Af Amer) BUN/Creatinine Ratio Glucose Calcium Total Bilirubin AST ALT Alkaline Phosphatase Total Protein Albumin Globulin Albumin/Globulin Ratio TSH HCG, Qual Urine Color Urine Appearance Urine pH Ur Specific Hughes Urine Protein Urine Glucose (UA) Urine Ketones Urine Blood Urine Nitrite Urine Bilirubin Urine Urobilinogen Ur Leukocyte Esterase Salicylates Urine Opiates Screen Ur Methadone, Qual Acetaminophen Urine Barbiturates Ur Phencyclidine (PCP) U Amphetamin/Meth Scrn MDMA (Ecstasy) Screen U Benzodiazepines Scrn Ur Cocaine Metabolite U Marijuana (THC) Screen U Marijuana THC Carboxy Drug Screen Comment Ethyl Alcohol mg/dL < 3.0 COVID-19 Eval Order SARS-CoV-2, RNA, NAAT Hospital Course (1) Auditory hallucinations: 11/18 -after discussion with trauma therapist during last hospitalization, these appear to be related to PTSD/BPD. She reported initial good response to haloperidol during last hospitalization, dose was recently increased to 10 mg daily, which I will continue, with an addition of a 5 mg as needed dose. Fasting labs reviewed from 10/29/2020, notable for cholesterol 229. Although I am hesitant to treat these hallucinations with antipsychotics, given the risk of side effects and potential for negative long-term effects, the patient is insisting on use of medication to target these symptoms. Unfortunately she has been unwilling to commit to trauma therapy and now has been discharged from care, as part of those recommendations was to stop smoking marijuana, attend and participate in appointments, and allow communication with other outpatient clinicians, which she was not doing. 11/19 - Agree with assessment above. Unfortunately, patient's admits her entire goal of admission was for "medication changes". Rationale was provided regarding recommendation that we continue to monitor symptoms, given that haloperidol was just adjusted. Concern was also reviewed regarding continued cannabis abuse and limited motivation for change when engaging with outpatient treatment. - Pt reported desire to sign her 72-hour notice, which was offered to her. Will take steps to confirm outpatient appointments, as she will need prompt follow-up with outpatient providers. - Pt denied SI today, but did admit to ongoing auditory hallucinations. 11/20 -Today the patient reports that she is feeling better and is ready for discharge. She does report favorable response to haloperidol and understands that the plan would be for further adjustments in her medications to occur cautiously on an outpatient basis. -Outpatient appointments have been confirmed. -The patient reports continued auditory and visual hallucinations, but feels that these are under control and she no longer feels potentially vulnerable to taking action based upon the content of these hallucinations. (2) Generalized anxiety disorder: 11/18 -patient reports exacerbation of anxiety and is requesting medication for that, stating hydroxyzine does not work. Will trial propanolol 10 mg twice daily as needed, reviewed risks, benefits, and side effects. -Patient would benefit from working on behavioral techniques to manage anxiety and focusing on healthy coping skills, rather than medications for every sym ptom. 11/19 - Pt did trial one dose of propranolol, though reporting she has been resistant to asking for additional doses which is impacting our ability to know if it is beneficial for her continued reports of anxiety - Pt continues to request new medications, but then states that all reasonable options offered have been tried and are unsuccessful. Pt requests lorazepam, and reasoning was provided as to why the medication would not be ordered during this stay (ongoing cannabis abuse, concern for misuse, etc). 11/20 -Patient today reports that she does feel somewhat jumpy. When asked if she thought this might be anxiety in anticipation of discharge she said that she has not noticed any increase in anxiety, but, instead, notes that she has been anxious or restless during the entire stay. On examination, the patient demonstrated mild cogwheel rigidity, and she was given benztropine 1 mg p.o., previously ordered as a as needed. Extraparametal side effects were reviewed with the patient and she indicated understanding. She was also advised that we would provide a supply of standing dose benztropine 1 mg p.o. twice daily that will be ordered electronically and available to her at her pharmacy in [place]. -The patient has a diphenhydramine order to be taken at bedtime. This order predated the admission and the patient says that she does have a small supply of this medication at home. She was advised that this, too, can help with extrapyramidal side effects and the jumpy or restless sensation that she notes that she is feeling. (3) PTSD (post-traumatic stress disorder): 11/18 -as above (4) Psychogenic nonepileptic seizure: 11/18 -we will utilize gabapentin while in the hospital, patient unwilling to stop using medical marijuana and insists on returning to it after discharge, so will not continue this medication when she leaves as she states she will not take it. -Send records to her outpatient neurologist and schedule an earlier appointment. (5) Cannabis abuse: 11/18 -ongoing, limited insight and motivation to change. We reviewed the risks of worsening psychosis, and cannot rule out a substance-induced psychosis. 11/19 - Continues to demonstrate limited insight regarding the impact of her marijuana use on her mental health. She clearly verbalizes she has not desire to make changes to her marijuana use. 11/20 = No change. Mental Health & Subst Abuse Tx Psychiatrist Name of Psychiatrist: Neil Psychiatrist's Date of Appointment with Psychiatrist: 12/11/20 Time of Appointment with Psychiatrist: 10:00 a.m. Psychiatric Appointment Comment: [address] [facility], [place] [address] Psychiatrist Release of Information: Obtained, Reviewed and Signed Therapist Name of Therapist: YAKOV Almonte Therapist's Date of Therapist Appointment: 11/24/20 Time of Therapist Appointment: 8:00 a.m. Therapy Appointment Comment: Rescheduled due to pt. hospitalization Therapist Release of Information: Obtained, Reviewed and Signed Manager Project Name of Manager Project: Marleny Alvarado Phone Number for Manager Project: [phone] Case Management Appointment Comment: Please follow up to schedule an appt radha/ Jenny Manager Project Release of Information: Obtained, Reviewed and Signed Post Discharge Appointments Primary Care Physician Name Of Family Doctor: Jerman [address] [place] [address] Primary Care Time of Appointment with PCP: Follow up as needed Provider Appointment Comment: [address] [place] [address], AMARILIS Dominguez Primary Care Release of Information: Obtained, Reviewed and Signed Smoking Cessation Counseling Tobacco Cessation Medication Prescribed at Discharge: Not Applicable/Non-Smoker Contact Information Discharge Discharge [address]: [address] [place] [address] AMARILIS Dominguez [id number] Discharge Plan Discharge Items Patient Disposition: Home - Self-Care Reason For Visit: PTSD Discharge Diagnosis: Unspecified Psychosis Activity: Resume your previous activity Non-emergency contact: Primary Care Provider, Psychiatrist, Therapist and Airport Operations Duty Manager Call non-emergency contact if: you have any medication questions and your symptoms worsen Follow-up/Referrals: Ephraim Maravilla MD [Primary Care Provider] - Diet: Regular Addtl Attending Provider Instructions: SPECIAL CARE INSTRUCTIONS: 1. Follow through with your scheduled aftercare appointments. If unable to keep an appointment, please call to reschedule. 2. Take your medication only as prescribed. Medication should not be changed or stopped without the approval of your doctor. In the event of worsening symptoms or concerns about side effects, contact your doctor immediately. 3. Utilize new healthy coping skills, anger management skills, and stress management skills learned during your hospitalization. Journal feelings and process them with a support person. Identify stressors or situations that may result in relapse, deterioration or inappropriate behaviors and develop a plan to deal with those issues. 4. If your coping skills are ineffective and you are in crisis, contact your outpatient providers for direction. If unable to reach your providers, please call the [facility] CRISIS LINE AT , go to the [facility] walk-in center at [address], [address], [place], or go to the closest Emergency Room. 5. Avoid alcohol and un-prescribed drugs. 6. You have been provided with the Mental Health Advance Directives Pamphlet for your review. AFTERCARE APPOINTMENTS: * Please call your insurance company prior to your scheduled appointment to confirm your aftercare providers are covered. Take your insurance information to your appointments. WHO TO CALL AND WHEN: Medical Emergencies: For questions or emergencies related to your hospital stay, please contact the Inpatient Behavioral Health Unit at [phone]. A sexual assault counsellor is on-call 20/02 for the Behavioral Health Unit for emergencies At any time you feel your situation is an emergency, you may also call 911 immediately. Pending Studies at Discharge: No Stand-Alone Forms: [facility], Smoking Cessation Medications and DC Order Prescriptions: New gabapentin 100 mg Capsule 200 mg PO BID Qty: 2 RF: 0 benztropine 1 mg tablet 1 mg PO BID Qty: 60 RF: 0 Continued diphenhydramine HCl [Banophen] 25 mg capsule 25 mg PO HS RF: 0 haloperidol 10 mg tablet 10 mg PO HS RF: 0 Discharge Orders: Discharge Order (Routine); Ordered 11/20/20 Ordered By: Alfredo Ferguson Admission Data Admit Date/Time: 11/18/20 08:09 Attending Provider: Carley Sheikh Admit Provider: Carley Sheikh Primary Care Provider: Ephraim Maravilla Other Interventions: Discharge Summary Assessment (RN) Last Done: 11/20/20 11:19 PSY Interdisciplinary Discharge Planning Last Done: 11/20/20 11:17 [place] [address] D/C day mgmt > 30 min Patient Type Established History Expanded Problem Focused Exam Expanded Problem Focused Medical Decision Making Moderate Complexity Diagnoses Auditory hallucinations R44.0 Generalized anxiety disorder F41.1 PTSD (post-traumatic stress disorder) F43.10 Psychogenic nonepileptic seizure F44.5 Cannabis abuse F12.10 Time Spent (min) 60
== END 2020-11-20 12:20 | disposition home or self-care (01) | DRG 885 ==
LOC: ED 21:43 → 3S 11-18 08:09